=== PATIENT | female | born 1940 | race Caucasian/White ===

== ENCOUNTER 2016-12-21 10:11 | Inpatient (IN) | payer MEDICARE, BC ==
[2016-12-21] MEDS ORDERED: MORPHINE SULFATE 4 MG/ML SYRINGE IV STA (10:29)
[2016-12-21] MEDS ORDERED: SODIUM CHLORIDE 0.9% 1,000 ML IV ONE (10:29)
[2016-12-21] MEDS ORDERED: ONDANSETRON 4 MG/2 ML VIAL IVP STA (10:29)
[2016-12-21] MEDS ORDERED: SODIUM CHLORIDE 0.9% 500 ML IV ONE ×2 (10:29→12:32)
[2016-12-21] MEDS ORDERED: IPRATROPIUM-ALBUTEROL 3 ML NEB INHALATION STA (10:40)
[2016-12-21] MEDS ORDERED: methylPREDNISolone SOD SUCCI 125 MG/2 ML VIAL IV STA (10:40)
--- NOTE | 2016-12-21 10:43 | ED ---
Fall HPI - General Chief Complaint: Fall Stated Complaint: Back Pain/Hypothermia Time Seen by Provider: 12/21/16 10:12 Source: patient, EMS Mode of arrival: EMS - History of Present Illness Initial Comments: Fell last night, Procardia Procardia fall with her hands had a hard time getting up and finally crawl to the couch, she fell that her legs were weak, denies any head injury or loss of consciousness complaining about the back pain it's lower thoracic back pain she has a history of thoracic back pain, denies any bowel or bladder dysfunction. Denies any headaches no neck stiffness no chest pain has shortness of breath she said has a history of COPD coughing up some phlegm as well, does have a chronic shortness of breath he does hurt her chest when she takes a deep breath bringing up some phlegm. Denies any symptoms of TIA or CVA - Related Data Home Medications Medication Instructions Recorded Confirmed Hydrochlorothiazide [Hydrodiuril] 25 mg PO DAILY 04/16/16 12/21/16 Ibuprofen [Motrin] 800 mg PO QID PRN 04/16/16 12/21/16 Benazepril [Lotensin] 10 mg PO DAILY 12/21/16 12/21/16 Budesonide/Formoterol Fumarate 2 puff INHALATION RT-BID 12/21/16 12/21/16 [Symbicort 160-4.5 Mcg Inhaler] Previous Rx's Medication Instructions Recorded Albuterol Nebulized [Ventolin 2.5 mg INHALATION RT-QID #120 nebu 04/18/16 Nebulized] Tiotropium Lyman [Spiriva] 1 cap INHALATION RT-DAILY #30 04/18/16 cap.w.dev Allergies Allergy/AdvReac Type Severity Reaction Status Date / Time No Known Allergies Allergy Verified 12/21/16 10:36 Review of Systems ROS Statement: Those systems with pertinent positive or pertinent negative responses have been documented in the HPI. ROS Other: All systems not noted in ROS Statement are negative. Past Medical History Past Medical History: COPD, Hypertension Additional Past Medical History / Comment(s): emphysema History of Any Multi-Drug Resistant Organisms: None Reported Past Surgical History: Hysterectomy Additional Past Surgical History / Comment(s): thinks had hernia repair with covering Past Anesthesia/Blood Transfusion Reactions: Postoperative Nausea & Vomiting ( PONV) Past Psychological History: No Psychological Hx Reported Smoking Status: Former smoker Past Alcohol Use History: None Reported Past Drug Use History: None Reported - Past Family History Father Family Medical History: COPD Additional Family Medical History / Comment(s): empysema Mother Family Medical History: AICD/Pacemaker, Myocardial Infarction ([place]) General Exam - General Exam Comments Initial Comments: General: The patient is awake and alert, in mild distress Skin: Skin is warm and dry and no rashes or lesions are noted. Eye: Pupils are equal, round and reactive to light, extra-ocular movements are intact; there is normal conjunctiva bilaterally. Ears, nose, mouth and throat: There are moist mucous membranes and no oral lesions. Neck: The neck is supple, there is no tenderness or JVD. No tenderness over the cervical spine Cardiovascular: There is a regular rate and rhythm. No murmur, rub or gallop is appreciated. Respiratory: To auscultation bilateral, exam consistent with the moderate to severe COPD Gastrointestinal: Soft, non-distended, non-tender abdomen without masses or organomegaly noted. There is no rebound or guarding present. Bowel sounds are unremarkable. Back: There is no tenderness to palpation in the midline. There is no obvious deformity. Musculoskeletal: She is tender over the mid thoracic lower thoracic region Neurological: CN II-XII intact, Cranial nerves III through XII are intact. There are no obvious motor or sensory deficits. Coordination appears grossly intact. Speech is normal. Psychiatric: Cooperative, appropriate mood & affect, normal judgment. Course Vital Signs 12/21/16 12/21/16 12/21/16 10:13 11:01 11:09 Temperature 97.1 F L Pulse Rate 71 77 84 Respiratory 14 Rate Blood Pressure 137/79 O2 Sat by Pulse 100 Oximetry 12/21/16 12:20 Temperature Pulse Rate 69 Respiratory 18 Rate Blood Pressure 125/58 O2 Sat by Pulse 95 Oximetry EKG is junctional rhythm ventricular rate is 68 QRS duration is 78 QT/QTc is 440 /4067, because of patient's shakiness there is a lot of artifacts there is no ST elevation or ST depression in this EKG Medical Decision Making - Lab Data Result diagrams: 12/21/16 10:50 12/21/16 10:50 Lab Results 12/21/16 12/21/16 12/21/16 Range/Units 10:50 10:50 10:50 WBC 8.5 (3.8-10.6) k/uL RBC 4.46 (3.80-5.40) m/uL Hgb 14.2 (11.4-16.0) gm/dL Hct 42.2 (34.0-46.0) % MCV 94.8 (80.0-100.0) fL MCH 32.0 (25.0-35.0) pg MCHC 33.7 (31.0-37.0) g/dL RDW 13.8 (11.5-15.5) % Plt Count 284 (150-450) k/uL Neutrophils % 87 % Lymphocytes % 5 % Monocytes % 6 % Eosinophils % 1 % Basophils % 0 % Neutrophils # 7.4 (1.3-7.7) k/uL Lymphocytes # 0.4 L (1.0-4.8) k/uL Monocytes # 0.5 (0-1.0) k/uL Eosinophils # 0.1 (0-0.7) k/uL Basophils # 0.0 (0-0.2) k/uL PT 10.1 (9.0-12.0) sec INR 1.0 (<1.1) D-Dimer 2.92 H (<0.60) mg/L FEU VBG pH (7.31-7.41) VBG pCO2 (37-51) mmHg VBG HCO3 (24-28) mmol/L Sodium 124 L (137-145) mmol/L Potassium 3.5 (3.5-5.1) mmol/L Chloride 84 L (98-107) mmol/L Carbon Dioxide 26 (22-30) mmol/L Anion Gap 14 mmol/L BUN 13 (7-17) mg/dL Creatinine 0.62 (0.52-1.04) mg/dL Est GFR (MDRD) Af Amer >60 (>60 ml/min/1.73 sqM) Est GFR (MDRD) Non-Af >60 (>60 ml/min/1.73 sqM) Glucose 107 H (74-99) mg/dL Calcium 9.5 (8.4-10.2) mg/dL Total Bilirubin 1.1 (0.2-1.3) mg/dL AST 35 (14-36) U/L ALT 33 (9-52) U/L Alkaline Phosphatase 82 (38-126) U/L CK-MB (CK-2) (0.0-2.4) ng/mL Troponin I (0.000-0.034) ng/mL Total Protein 7.6 (6.3-8.2) g/dL Albumin 4.7 (3.5-5.0) g/dL 12/21/16 12/21/16 Range/Units 10:50 11:09 WBC (3.8-10.6) k/uL RBC (3.80-5.40) m/uL Hgb (11.4-16.0) gm/dL Hct (34.0-46.0) % MCV (80.0-100.0) fL MCH (25.0-35.0) pg MCHC (31.0-37.0) g/dL RDW (11.5-15.5) % Plt Count (150-450) k/uL Neutrophils % % Lymphocytes % % Monocytes % % Eosinophils % % Basophils % % Neutrophils # (1.3-7.7) k/uL Lymphocytes # (1.0-4.8) k/uL Monocytes # (0-1.0) k/uL Eosinophils # (0-0.7) k/uL Basophils # (0-0.2) k/uL PT (9.0-12.0) sec INR (<1.1) D-Dimer (<0.60) mg/L FEU VBG pH 7.46 H (7.31-7.41) VBG pCO2 38 (37-51) mmHg VBG HCO3 27 (24-28) mmol/L Sodium (137-145) mmol/L Potassium (3.5-5.1) mmol/L Chloride (98-107) mmol/L Carbon Dioxide (22-30) mmol/L Anion Gap mmol/L BUN (7-17) mg/dL Creatinine (0.52-1.04) mg/dL Est GFR (MDRD) Af Amer (>60 ml/min/1.73 sqM) Est GFR (MDRD) Non-Af (>60 ml/min/1.73 sqM) Glucose (74-99) mg/dL Calcium (8.4-10.2) mg/dL Total Bilirubin (0.2-1.3) mg/dL AST (14-36) U/L ALT (9-52) U/L Alkaline Phosphatase (38-126) U/L CK-MB (CK-2) 1.3 (0.0-2.4) ng/mL Troponin I <0.012 (0.000-0.034) ng/mL Total Protein (6.3-8.2) g/dL Albumin (3.5-5.0) g/dL Disposition Clinical Impression: Fall, COPD (chronic obstructive pulmonary disease), Generalized weakness, Compression fracture Disposition: ADMITTED IP TO THIS HOSP Condition: Good Referrals: Thom Guzman MD [Primary Care Provider] - 1-2 days
[2016-12-21 11:11] LABS: Basophils % (A) 0 %; CH 32.9; CHCM 34.8; Eosinophils # (A) 0.1 k/uL (0-0.7); Eosinophils % (A) 1 %; HCT 42.2 % (34.0-46.0); HDW 2.28; HGB 14.2 gm/dL (11.4-16.0); Luc # (Auto) 0.09; Luc % (Auto) 1; Lymphocytes # (A) 0.4 k/uL (1.0-4.8); Lymphocytes % (A) 5 %; MCHC 33.7 g/dL (31.0-37.0); MCV 94.8 fL (80.0-100.0); Mean Platelet Volume 6.2; Monocytes # (A) 0.5 k/uL (0-1.0); Monocytes % (A) 6 %; Neutrophils # (A) 7.4 k/uL (1.3-7.7); Neutrophils % (A) 87 %; RBC 4.46 m/uL (3.80-5.40); RDW 13.8 % (11.5-15.5); WBC 8.5 k/uL (3.8-10.6); WBC (Perox) 8.46
[2016-12-21 11:20] LABS: ALT 33 U/L (9-52); AST 35 U/L (14-36); Alkaline Phosphatase 82 U/L (38-126); Anion Gap 14 mmol/L; Blood Urea Nitrogen 13 mg/dL (7-17); Calcium 9.5 mg/dL (8.4-10.2); Carbon Dioxide 26 mmol/L (22-30); Chloride 84 mmol/L (98-107); Glucose 107 mg/dL (74-99); Non-African American GFR(MDRD) >60 (>60 ml/min/1.73 sqM); Sodium 124 mmol/L (137-145); Total Bilirubin 1.1 mg/dL (0.2-1.3); Total Protein 7.6 g/dL (6.3-8.2)
[2016-12-21 11:23] LABS: Potassium 3.5 mmol/L (3.5-5.1)
[2016-12-21 11:27] LABS: Prothrombin Time 10.1 sec (9.0-12.0)
[2016-12-21 11:38] LABS: VBG PH 7.46 (7.31-7.41)
--- NOTE | 2016-12-21 11:54 | XR ---
EXAMINATION TYPE: XR chest 2V DATE OF EXAM: 12/21/2016 11:49 AM COMPARISON: 04/16/2016 TECHNIQUE: PA and lateral views submitted. HISTORY: Pain FINDINGS: The lungs are clear and there is no pneumothorax, pleural effusion, or focal pneumonia. Linear dougherty ges involving the midlung suggestive of scar or atelectasis. Hyperinflation suggests COPD. Calcificat ion soft tissue the neck suggestive of carotid artery calcification. Degenerative change of the spine with severe compression deformity which is stable the midthoracic sp ine. IMPRESSION: 1. No acute process. 2. Stable severe compression deformity midthoracic spine 3. Correlate for COPD. 4. Progressive calcification soft tissue left neck correlate for carotid artery atherosclerotic disea se.
--- NOTE | 2016-12-21 11:59 | CT ---
EXAMINATION TYPE: CT brain wo con DATE OF EXAM: 12/21/2016 11:47 AM HISTORY: Patient fell today. Patient complains of mid back pain. Patient denies head trauma and hea d complaints. Headache per order. CT DLP: 799.1 mGycm. Automated Exposure Control for Dose Reduction was Utilized. TECHNIQUE: CT scan of the head is performed without contrast. COMPARISON: None. FINDINGS: There is no acute intracranial hemorrhage or midline shift identified. There is diffuse v entricular and sulcal prominence consistent with diffuse age-related cerebral atrophy. There is low- attenuation in the periventricular white matter consistent with chronic small vessel ischemic change. The globes are intact and the visualized sinuses are clear. The calvarium is intact. IMPRESSION: No acute intracranial hemorrhage or midline shift. There is mild to moderate diffuse ag e-related cerebral atrophy and moderate to severe chronic small vessel ischemic change noted.
--- NOTE | 2016-12-21 12:04 | CT ---
EXAMINATION TYPE: CT thoracic spine wo con DATE OF EXAM: 12/21/2016 11:46 AM COMPARISON: NONE HISTORY: Patient fell today. Patient complains of mid back pain. CT DLP: 444.9 mGycm Automated exposure control for dose reduction was used. FINDINGS: Osseous structures are demineralized. There is exaggerated thoracic kyphosis is seen. There is modera te to severe compression type fracture at T8 level presumed chronic as there is no suspicious linear lucencies seen. There is mild compression type fracture involving superior T11 endplate also presumed chronic as there is some sclerosis identified. Mild anterior wedging and height loss superior endpla te T12 level is seen presumed chronic. No suspicious linear lucency is seen to suggest acute fracture . There is posterior retropulsion of inferior posterior T8 vertebra into spinal canal on sagittal image 23. There is mild posterior retropulsion of the superior half of T11 vertebra on sagittal image 23 i nto the anterior spinal canal. There is mild multilevel anterior spurring. There is S-shaped scoliosi s most pronounced in the visualized upper lumbar spine on coronal images. There is underlying moderate to severe emphysematous change. There is partial visualization of suspec marivel bulla in the lingula or left mid lung with some mild bronchiectasis and peribronchial scarring in ferior to this partially imaged. There is mild to moderate calcified atherotic change of the visualiz ed aorta. There is coronary artery calcification seen which is noted marker for coronary artery disea se. No significant degenerative findings are identified on axial images. IMPRESSION: NO ACUTE FRACTURE OR DISLOCATION IS SEEN. THERE IS DEMINERALIZATION WITH SCOLIOSIS AND EXAGGERATED TH ORACIC KYPHOSIS. THERE ARE SEVERAL CHRONIC COMPRESSION TYPE FRACTURE DEFORMITIES MOST PROMINENT AT T8 LEVEL. OTHER FINDINGS ARE NOTED DETAILED ABOVE.
[2016-12-21] MEDS ORDERED: RX INFO: IV CONTRAST WAS GIVEN 1 EACH MISC MISCELLANE PRN (12:31)
[2016-12-21 12:34] LABS: Creatine Kinase MB 1.3 ng/mL (0.0-2.4); Troponin I <0.012 ng/mL (0.000-0.034)
--- NOTE | 2016-12-21 13:09 | CT ---
EXAMINATION TYPE: CT angio chest DATE OF EXAM: 12/21/2016 1:03 PM COMPARISON: Same-day thoracic spine x-ray. HISTORY: Patient complains of fall today with mid back pain. Patient has history of COPD. Rule out pu lmonary embolism per order CT DLP: 230.4 mGycm. Automated Exposure Control for Dose Reduction was Utilized. CONTRAST: CTA scan of the thorax is performed with IV Contrast, patient injected with 100 mL of Omnipaque 350, pulmonary embolism protocol. MIP Images are created on CT scanner and reviewed. FINDINGS: LUNGS: There is background of moderate emphysematous change. There is thin-walled cyst or bulla in th e inferior left upper lobe measuring 3.3 x 3.3 cm on axial image 69 there is scarring and mild bronch iectatic change along inferior aspect of this abutting the minor fissure with some extension into the superior lingula. Dependent atelectatic change is seen in both bases. There is no pleural effusion o r pneumothorax present bilaterally. No concerning parenchymal nodule or mass is seen. MEDIASTINUM: There is satisfactory enhancement of the pulmonary artery and its branches, there is no CT evidence for pulmonary embolism. There are no greater than 1 cm hilar or mediastinal lymph nodes. No cardiomegaly or pericardial effusion is seen. Coronary artery calcification is noted. There is moderate mixed plaque in visualized aorta extending into left subclavian branch vessel. OTHER: Osseous structures are demineralized. Moderate to advanced compression type fracture at T8 lev el is redemonstrated. Mild height loss or compression fractures T11 and T12 level are redemonstrated. IMPRESSION: 1. No CT evidence for pulmonary embolism. 2. Moderate emphysematous change without suspicious acute pulmonary process.
[2016-12-21] MEDS ORDERED: IPRATROPIUM-ALBUTEROL 3 ML NEB INHALATION PRN (13:53)
[2016-12-21 14:13] LABS: Appearance,Urine Clear (Clear); Bilirubin,Urine Negative (Negative); Glucose,Urine (UA) Negative (Negative); Ketones,Urine Negative (Negative); Leukocyte Esterase,Urine Negative (Negative); Nitrite,Urine Negative (Negative); Protein,Urine Negative (Negative); Specific Gravity,Urine 1.025 (1.001-1.035); UA Billing (MACRO vs. MICRO) CHEM; Urobilinogen,Urine <2.0 mg/dL (<2.0)
[2016-12-21] MEDS ORDERED: FUROSEMIDE 10 MG/ML 2 ML VIAL IV ONE (15:00)
[2016-12-21] MEDS: IBUPROFEN 800 MG TAB PO PRN ×2 (15:57→21:44)
[2016-12-21] MEDS: ALBUTEROL NEBULIZED 2.5 MG/3 ML INHALATION SCH ×2 (16:00→20:18)
[2016-12-21 17:07] LABS: Glucose,Whole Blood 208 mg/dL (75-99)
[2016-12-21] MEDS: methylPREDNISolone SOD SUCCI 125 MG/2 ML VIAL IV SCH ×2 (17:50→23:52)
[2016-12-21] MEDS: INSULIN LISPRO (humaLOG) 300 UNIT/3 ML VIAL SQ SCH ×2 (17:50→21:33)
[2016-12-21] MEDS ORDERED: BUDESONIDE 0.5 MG/2 ML NEBU INHALATION SCH (20:00)
[2016-12-21] MEDS: SYMBICORT 160-4.5 MCG INHALER INHALATION SCH (20:26)
[2016-12-21 20:58] LABS: Glucose,Whole Blood 119 mg/dL (75-99)
[2016-12-22] MEDS: IBUPROFEN 800 MG TAB PO PRN ×3 (03:40→20:55)
[2016-12-22] MEDS: methylPREDNISolone SOD SUCCI 125 MG/2 ML VIAL IV SCH ×3 (06:32→17:04)
[2016-12-22] MEDS: HYDROCHLOROTHIAZIDE 25 MG TAB PO SCH (07:37)
[2016-12-22] MEDS: LISINOPRIL 10 MG TAB PO SCH (07:37)
[2016-12-22] MEDS: INSULIN LISPRO (humaLOG) 300 UNIT/3 ML VIAL SQ SCH ×4 (07:38→20:58)
[2016-12-22 07:43] LABS: Glucose,Whole Blood 159 mg/dL (75-99)
[2016-12-22] MEDS: SYMBICORT 160-4.5 MCG INHALER INHALATION SCH ×2 (08:24→20:27)
[2016-12-22] MEDS: ALBUTEROL NEBULIZED 2.5 MG/3 ML INHALATION SCH ×4 (08:24→20:27)
[2016-12-22] MEDS: TIOTROPIUM 18 MCG/PUFF INHALER INHALATION SCH (08:24)
[2016-12-22 12:16] LABS: Glucose,Whole Blood 154 mg/dL (75-99)
[2016-12-22 17:26] LABS: Glucose,Whole Blood 182 mg/dL (75-99)
[2016-12-22 20:55] LABS: Glucose,Whole Blood 137 mg/dL (75-99)
[2016-12-23] MEDS: methylPREDNISolone SOD SUCCI 125 MG/2 ML VIAL IV SCH ×3 (00:16→12:01)
[2016-12-23 07:42] LABS: Glucose,Whole Blood 150 mg/dL (75-99)
[2016-12-23] MEDS: HYDROCHLOROTHIAZIDE 25 MG TAB PO SCH (08:03)
[2016-12-23] MEDS: LISINOPRIL 10 MG TAB PO SCH (08:03)
[2016-12-23] MEDS: INSULIN LISPRO (humaLOG) 300 UNIT/3 ML VIAL SQ SCH ×4 (08:04→21:19)
[2016-12-23] MEDS: ALBUTEROL NEBULIZED 2.5 MG/3 ML INHALATION SCH ×4 (08:32→19:38)
[2016-12-23] MEDS: SYMBICORT 160-4.5 MCG INHALER INHALATION SCH ×2 (08:33→19:38)
[2016-12-23] MEDS: TIOTROPIUM 18 MCG/PUFF INHALER INHALATION SCH (09:33)
[2016-12-23 12:03] LABS: Glucose,Whole Blood 124 mg/dL (75-99)
[2016-12-23] MEDS: IBUPROFEN 800 MG TAB PO PRN (13:16)
[2016-12-23 15:42] VITALS: RESP 18
[2016-12-23] MEDS ORDERED: ACETAMINOPHEN TAB 325 MG TAB PO PRN (16:12)
[2016-12-23 17:25] LABS: Glucose,Whole Blood 119 mg/dL (75-99)
--- NOTE | 2016-12-23 18:28 | HP ---
CHIEF COMPLAINT: Fall with fracture of the T8. HISTORY OF PRESENT ILLNESS: This is another admission for this frail 76-year-old white female. She apparently fell at home on was found in the back. She sustained quite a bit of pain in the dorsal spine area and came to emergency room, where she was found to have a compression fracture of T8. She also was in respiratory distress. She has severe COPD and is making a serious effort to quit smoking. She reports that she has not smoked since July 2016. She had no neurologic deficits. REVIEW OF SYSTEMS: She has had no syncope, headaches, focal neurologic deficits, problems with lower extremities or loss of sphincter control. She has had no cough, hemoptysis, chest pain, abdominal pain, vomiting, diarrhea, melena, jaundice, hematuria, frequency, urgency, arthralgias, etc. Past medical history, family history, personal and social histories reveal that she is not allergic to anything. She is on: 1. Symbicort 160/4.5 2 puffs twice a day. 2. Lotensin 10 mg once a day. 3. Updrafts with albuterol and Atrovent q.i.d. and p.r.n. 4. Atrovent q.i.d. and p.r.n. 5. Spiriva once a day. 6. Ibuprofen 800 mg q.i.d. p.r.n. 7. Hydrochlorothiazide 25 mg once a day. She has had 1 and 1 delivery. Surgically, she has had a breast biopsy. PHYSICAL EXAM: VITAL SIGNS: Blood pressure 166/84, pulse 72, respirations 16, temperature 98.3. In general, she appeared to be flushed and in quite a bit of discomfort. Head, ears, eyes, nose, mouth and throat were otherwise normal. Gaze is conjugate. Ears are clear. The neck is supple. Neck veins not distended. The chest demonstrated poor breath sounds and there were no rales or rhonchi. Cardiac demonstrated sinus tachycardia. There were no murmurs or extra sounds. The abdomen was soft and there were no masses. Extremities were normal. Neurologically, she is intact. She was a little bit tender over the mid dorsal spine. IMPRESSION: 1. Compression fracture of T8. 2. Chronic obstructive pulmonary disease, severe. 3. Scoliosis. 4. Hypertension. PLAN: 1. Bed rest. 2. Analgesics. 3. Updrafts. 4. Physical therapy.
--- NOTE | 2016-12-23 18:46 | PN ---
CHIEF COMPLAINT: Syncope and fracture of T8 with COPD. HISTORY OF PRESENT ILLNESS: This lady is still in a lot of pain and can hardly move. She has had no fever, chills, purulent sputum production, etc. PHYSICAL EXAM: Breath sounds are poor but there are no rales or rhonchi. Cardiac is normal. The abdomen is soft and nontender. IMPRESSION: 1. Fracture of ( ). 2. Chronic obstructive pulmonary disease. PLAN: 1. Updrafts. 2. Continue on conservative management until she is able to ambulate. She may have to go for rehab.
[2016-12-23 21:03] LABS: Glucose,Whole Blood 139 mg/dL (75-99)
[2016-12-23] MEDS: DOCUSATE 100 MG CAP PO PRN (21:19)
[2016-12-24] MEDS ORDERED: methylPREDNISolone SOD SUCCI 40 MG/ML 1 ML VIAL IV SCH
[2016-12-24 07:35] LABS: Glucose,Whole Blood 119 mg/dL (75-99)
[2016-12-24] MEDS: INSULIN LISPRO (humaLOG) 300 UNIT/3 ML VIAL SQ SCH ×2 (07:39→12:04)
[2016-12-24 07:43] VITALS: BP 158/77; TEMP 97
[2016-12-24] MEDS: ALBUTEROL NEBULIZED 2.5 MG/3 ML INHALATION SCH (07:57)
[2016-12-24] MEDS: SYMBICORT 160-4.5 MCG INHALER INHALATION SCH (07:57)
[2016-12-24 08:16] VITALS: PULSE 83
[2016-12-24] MEDS: TIOTROPIUM 18 MCG/PUFF INHALER INHALATION SCH (08:18)
[2016-12-24] MEDS: HYDROCHLOROTHIAZIDE 25 MG TAB PO SCH (08:42)
[2016-12-24] MEDS: LISINOPRIL 10 MG TAB PO SCH (08:42)
[2016-12-24] MEDS: DOCUSATE 100 MG CAP PO PRN (10:40)
[2016-12-24] MEDS: IBUPROFEN 800 MG TAB PO PRN (10:50)
--- NOTE | 2016-12-24 11:07 | P.DS ---
Providers Date of admission: 12/21/16 13:53 Expected date of discharge: 12/24/16 Attending physician: Thom Guzman Primary care physician: Thom Guzman [facility] Course: 76-year-old female who presented via the EMS system on the december after patient stated that she had fallen was having trouble getting up felt that her legs were weak. Denied head injury denied loss of consciousness. Patient did report having lower back pain lower thoracic pain. Patient does give a history of chronic back pain. Patient also states that she has a history of COPD and coughing up phlegm and chronically feels short of breath. Patient stated that she took deep breaths she was coughing up phlegm. Patient is a former smoker. Quit in July 2016 prior to that greater than a 40 year history. CAT scan of the brain without contrast in the emergency room showed no acute intracranial hemorrhage. There is mild to moderate diffuse age-related cerebral atrophy with moderate to severe chronic small vessel ischemic changes noted in the emergency room the patient did undergo a CAT scan of the thoracic spine without contrast in summary showed no acute fracture or dislocation. There were noted to be several chronic compression type fracture deformities most prominent at T8 level patient also had a CAT scan of the chest that showed no evidence of a pulmonary emboli did show moderate emphysematous changes without any suspicious acute pulmonary process. Patient was seen by physical therapy occupational therapy and the family service caseworker the recommending the patient to be discharged home with a rolling walker with no inpatient rehab Patient was felt to be stable and appropriate proceed with a discharge to home The above dictated assessment and findings were discussed with Dr. Guzman Impression and the plan of care have been dictated as directed. Samia Nayak nurse practitioner acting as a scribe for Dr. Guzman Patient Condition at Discharge: Good Plan - Discharge Summary New Discharge Prescriptions: Ipratropium-Albuterol Nebulize [Duoneb 0.5 mg-3 mg/3 ml Soln] 3 ml INHALATION RT -Q4H PRN #120 ampul.neb PRN Reason: Shortness Of Breath Or Wheezing Discharge Medication List Hydrochlorothiazide [Hydrodiuril] 25 mg PO DAILY 04/16/16 [History] Ibuprofen [Motrin] 800 mg PO QID PRN 04/16/16 [History] Albuterol Nebulized [Ventolin Nebulized] 2.5 mg INHALATION RT-QID #120 nebu 11/29 [Rx] Tiotropium Sewell [Spiriva] 1 cap INHALATION RT-DAILY #30 cap.w.dev 04/18/16 [ Rx] Benazepril [Lotensin] 10 mg PO DAILY 12/21/16 [History] Budesonide/Formoterol Fumarate [Symbicort 160-4.5 Mcg Inhaler] 2 puff INHALATION RT-BID 12/21/16 [History] Ipratropium-Albuterol Nebulize [Duoneb 0.5 mg-3 mg/3 ml Soln] 3 ml INHALATION RT -Q4H PRN #120 ampul.neb 12/24/16 [Rx] Follow up Appointment(s)/Referral(s): Thom Guzman MD [Primary Care Provider] - 1-2 days Discharge Disposition: HOME WITH HOME HEALTH SERVICES
[2016-12-24 11:38] LABS: Glucose,Whole Blood 114 mg/dL (75-99)
--- NOTE | 2016-12-24 21:42 | PN ---
DATE OF SERVICE: 12/23/2016 CHIEF COMPLAINT: Fracture of T12 and chronic obstructive pulmonary disease. HISTORY OF PRESENT ILLNESS: This lady is feeling fairly good and she is able to sit up and move around comfortably. It was felt that she probably could go home today. This will be arranged by the nurse practitioner and we will see her in a day or two.
== END 2016-12-24 15:30 | disposition home health service (06) | DRG 552 ==
LOC: EC 10:11 → 4MS4W 13:53
PROVIDERS: ADMIT Family Medicine; ATTEND Family Medicine
DX: S22.069A Unspecified fracture of T7-T8 vertebra, initial encounter for closed fracture (principal); S22.089A Unspecified fracture of T11-T12 vertebra, initial encounter for closed fracture; J44.9 Chronic obstructive pulmonary disease, unspecified; M41.9 Scoliosis, unspecified; I10 Essential (primary) hypertension; G89.29 Other chronic pain; Z87.891 Personal history of nicotine dependence; Z79.51 Long term (current) use of inhaled steroids; Z79.899 Other long term (current) drug therapy; W19.XXXA Unspecified fall, initial encounter; Y92.009 Unspecified place in unspecified non-institutional (private) residence as the place of occurrence of the external cause
CPT/HCPCS: 36415; 70450; 71020; 71275; 72128; 80053; 81003; 82553; 82803; 84484; 85025; 85379; 85610; 93005; 94640; 96361; 96374; 96375; 99285

== ENCOUNTER 2017-08-11 06:13 | Emergency (ER) | payer MEDICARE, BC ==
[2017-08-11] MEDS ORDERED: HYDROmorphone 2 MG/ML 1 ML SYRINGE IVP STA ×2 (06:36→08:31)
[2017-08-11] MEDS ORDERED: IPRATROPIUM-ALBUTEROL 3 ML NEB INHALATION STA (06:37)
[2017-08-11] MEDS ORDERED: ONDANSETRON 4 MG/2 ML VIAL IVP STA (06:37)
[2017-08-11 07:05] LABS: Basophils % (A) 0 %; CH 31.2; CHCM 33.1; Eosinophils % (A) 0 %; HCT 39.8 % (34.0-46.0); HDW 2.25; HGB 12.9 gm/dL (11.4-16.0); Luc # (Auto) 0.04; Luc % (Auto) 0; Lymphocytes # (A) 0.5 k/uL (1.0-4.8); Lymphocytes % (A) 5 %; MCH 30.7 pg (25.0-35.0); MCHC 32.4 g/dL (31.0-37.0); MCV 94.8 fL (80.0-100.0); Mean Platelet Volume 6.7; Monocytes # (A) 0.6 k/uL (0-1.0); Monocytes % (A) 6 %; Neutrophils # (A) 7.8 k/uL (1.3-7.7); Neutrophils % (A) 87 %; RDW 14.6 % (11.5-15.5); WBC 8.9 k/uL (3.8-10.6); WBC (Perox) 9.78
[2017-08-11 07:29] LABS: ALT 31 U/L (9-52); AST 30 U/L (14-36); Alkaline Phosphatase 72 U/L (38-126); Anion Gap 8 mmol/L; Blood Urea Nitrogen 12 mg/dL (7-17); Calcium 8.9 mg/dL (8.4-10.2); Carbon Dioxide 27 mmol/L (22-30); Chloride 92 mmol/L (98-107); Glucose 124 mg/dL (74-99); Non-African American GFR(MDRD) >60 (>60 ml/min/1.73 sqM); Sodium 127 mmol/L (137-145); Total Bilirubin 0.4 mg/dL (0.2-1.3)
[2017-08-11 07:33] LABS: Creatine Kinase 368 U/L (30-135)
--- NOTE | 2017-08-11 07:36 | ED ---
Upper Extremity HPI - General Source: EMS Mode of arrival: EMS Limitations: physical limitation <Blake Rodriguez - Last Filed: 08/11/17 08:40> <To Augustin - Last Filed: 08/11/17 09:24> - General Chief Complaint: Extremity Injury, Upper Stated Complaint: Fall/Wrist Injury Time Seen by Provider: 08/11/17 06:26 - History of Present Illness Initial Comments: 77 years old female is going from the living room to the bathroom, she fell she tried to break the fall with her left hand, she injured her left wrist denies any head injury denies any neck injury because of the fall she does complain about shortness of breath she is a smoker with COPD but she feels that shortness of breath as well more pronounced no abdominal pain no frequency urgency, no injury to her lower extremities, no head injury, no loss of consciousness (Blake Rodriguez) - Related Data Home Medications Medication Instructions Recorded Confirmed Ibuprofen [Motrin] 800 mg PO QID PRN 04/16/16 08/11/17 Benazepril [Lotensin] 10 mg PO DAILY 12/21/16 08/11/17 Ergocalciferol [Vitamin D2] 50,000 unit PO Q30D 08/11/17 08/11/17 Previous Rx's Medication Instructions Recorded Albuterol Nebulized [Ventolin 2.5 mg INHALATION RT-QID #120 nebu 04/18/16 Nebulized] Tiotropium [place] [Spiriva] 1 cap INHALATION RT-DAILY #30 04/18/16 cap.w.dev Ipratropium-Albuterol Nebulize 3 ml INHALATION RT-Q4H PRN #120 12/24/16 [Duoneb 0.5 mg-3 mg/3 ml Soln] ampul.neb HYDROmorphone [Dilaudid] 1 mg PO Q4HR PRN #15 tab 08/11/17 Allergies Allergy/AdvReac Type Severity Reaction Status Date / Time No Known Allergies Allergy Verified 08/11/17 08:37 Review of Systems ROS Other: All systems not noted in ROS Statement are negative. <Blake Rodriguez - Last Filed: 08/11/17 08:40> ROS Other: All systems not noted in ROS Statement are negative. <To Augustin - Last Filed: 08/11/17 09:24> ROS Statement: Those systems with pertinent positive or pertinent negative responses have been documented in the HPI. Past Medical History Past Medical History: COPD, Hypertension, Osteoarthritis (OA), Vascular Disorder Additional Past Medical History / Comment(s): emphysema, DDD, back pain, arthritis back and hands, PVD bilateral legs, numbness/tingling bilateral feet with R foot worse History of Any Multi-Drug Resistant Organisms: None Reported Past Surgical History: Hernia Repair, Hysterectomy Additional Past Surgical History / Comment(s): R inguinal hernia repair, colonoscopy with benign polypectomy. Past Anesthesia/Blood Transfusion Reactions: Postoperative Nausea & Vomiting ( PONV) Past Psychological History: Anxiety Smoking Status: Current every day smoker Past Alcohol Use History: Daily Past Drug Use History: None Reported - Past Family History Father Family Medical History: COPD Additional Family Medical History / Comment(s): empysema Mother Family Medical History: AICD/Pacemaker, Myocardial Infarction ([place]) Additional Family Medical History / Comment(s): Mother had a pacemaker. <Blake Rodriguez - Last Filed: 08/11/17 08:40> General Exam Limitations: physical limitation <Blake Rodriguez - Last Filed: 08/11/17 08:40> <To Augustin - Last Filed: 08/11/17 09:24> - General Exam Comments Initial Comments: General: The patient is awake and alert, in great distress and blood pressures elevated to 8/99 but she is in a lot of pain at this point Skin: Skin is warm and dry and no rashes or lesions are noted. Eye: Pupils are equal, round and reactive to light, extra-ocular movements are intact; there is normal conjunctiva bilaterally. Ears, nose, mouth and throat: There are moist mucous membranes and no oral lesions. Neck: The neck is supple, there is no tenderness o Cardiovascular: There is a regular rate and rhythm. No murmur, rub or gallop is appreciated. Respiratory: To auscultation bilateral, exam is consistent with a moderate to severe COPD Gastrointestinal: Soft, non-distended, non-tender abdomen without masses or organomegaly noted. There is no rebound or guarding present. Bowel sounds are unremarkable. Back: There is no tenderness to palpation in the midline. There is no obvious deformity. Musculoskeletal: He is range of motion at the left breast she is able to move her fingers, capillary refill is within normal range, no motor or sensory deficits noticed Neurological: CN II-XII intact, Cranial nerves III through XII are intact. There are no obvious motor or sensory deficits. Coordination appears grossly intact. Speech is normal. Psychiatric: Cooperative, appropriate mood & affect, normal judgment. (Blake Rodriguez) Course <lBake Rodriguez - Last Filed: 08/11/17 08:40> <To Augustin - Last Filed: 08/11/17 09:24> Vital Signs 08/11/17 08/11/17 08/11/17 06:15 07:10 07:23 Temperature 97.1 F L Pulse Rate 75 76 76 Respiratory 18 Rate Blood Pressure 208/99 O2 Sat by Pulse 95 Oximetry 08/11/17 08/11/17 08:00 09:00 Temperature Pulse Rate 91 99 Respiratory 18 20 Rate Blood Pressure 112/59 112/59 O2 Sat by Pulse 91 L 95 Oximetry Him EKG is normal sinus rhythm ventricular rate is 88 [place] interval is 192 QRS duration is 76 QT/QTc is 48/493 review cc EKG does not reveal any ST elevation or ST depression there are some artifacts in the limb leads (Blake Rodriguez) - Reevaluation(s) Reevaluation #1: 08/11/17 07:54 She was quite short winded on arrival, her d-dimer is quite elevated we'll go ahead and do an CT angiogram to rule out any PE 08/11/17 08:09 X-ray was reviewed, she does have a fracture of the distal radius and ulna, get a page Dr. [facility]opedic surgeon today to seek his advice about the wrist fracture 08/11/17 08:44 Dr. Kvng Allen will keep an eye and the CT angiogram and agreed to follow-up on the CT edges report (Blake Rodriguez) Procedures - Orthopedic Splinting/Casting Injury #1 Upper Extremity Injury Location: wrist (Splint was applied for the left wrist fracture) <Blake Rodriguez - Last Filed: 08/11/17 08:40> Medical Decision Making - Lab Data Result diagrams: 08/11/17 06:51 08/11/17 06:51 <Blake Rodriguez - Last Filed: 08/11/17 08:40> - Lab Data Result diagrams: 08/11/17 06:51 08/11/17 06:51 - Radiology Data Radiology results: report reviewed (CTA chest negative), image reviewed <To Augustin - Last Filed: 08/11/17 09:24> - Medical Decision Making 77 female to ER for evaluation. Patient is presenting for evaluation today status post fall. Patient had CT secondary to subsequent elevated d-dimer. CT is negative for PE. Patient does have risk factor which is currently splinted and will follow up with orthopedics (To Augustin) - Lab Data Lab Results 08/11/17 08/11/17 08/11/17 Range/Units 06:51 06:51 06:51 WBC 8.9 (3.8-10.6) k/uL RBC 4.20 (3.80-5.40) m/uL Hgb 12.9 (11.4-16.0) gm/dL Hct 39.8 (34.0-46.0) % MCV 94.8 (80.0-100.0) fL MCH 30.7 (25.0-35.0) pg MCHC 32.4 (31.0-37.0) g/dL RDW 14.6 (11.5-15.5) % Plt Count 303 (150-450) k/uL Neutrophils % 87 % Lymphocytes % 5 % Monocytes % 6 % Eosinophils % 0 % Basophils % 0 % Neutrophils # 7.8 H (1.3-7.7) k/uL Lymphocytes # 0.5 L (1.0-4.8) k/uL Monocytes # 0.6 (0-1.0) k/uL Eosinophils # 0.0 (0-0.7) k/uL Basophils # 0.0 (0-0.2) k/uL D-Dimer (<0.60) mg/L FEU Sodium 127 L (137-145) mmol/L Potassium 3.0 L* (3.5-5.1) mmol/L Chloride 92 L (98-107) mmol/L Carbon Dioxide 27 (22-30) mmol/L Anion Gap 8 mmol/L BUN 12 (7-17) mg/dL Creatinine 0.75 (0.52-1.04) mg/dL Est GFR (MDRD) Af Amer >60 (>60 ml/min/1.73 sqM) Est GFR (MDRD) Non-Af >60 (>60 ml/min/1.73 sqM) Glucose 124 H (74-99) mg/dL Calcium 8.9 (8.4-10.2) mg/dL Total Bilirubin 0.4 (0.2-1.3) mg/dL AST 30 (14-36) U/L ALT 31 (9-52) U/L Alkaline Phosphatase 72 (38-126) U/L Total Creatine Kinase 368 H (30-135) U/L CK-MB (CK-2) 4.0 H* (0.0-2.4) ng/mL CK-MB (CK-2) Rel Index 1.1 Troponin I <0.012 (0.000-0.034) ng/mL Total Protein 6.0 L (6.3-8.2) g/dL Albumin 3.6 (3.5-5.0) g/dL 08/11/17 Range/Units 06:51 WBC (3.8-10.6) k/uL RBC (3.80-5.40) m/uL Hgb (11.4-16.0) gm/dL Hct (34.0-46.0) % MCV (80.0-100.0) fL MCH (25.0-35.0) pg MCHC (31.0-37.0) g/dL RDW (11.5-15.5) % Plt Count (150-450) k/uL Neutrophils % % Lymphocytes % % Monocytes % % Eosinophils % % Basophils % % Neutrophils # (1.3-7.7) k/uL Lymphocytes # (1.0-4.8) k/uL Monocytes # (0-1.0) k/uL Eosinophils # (0-0.7) k/uL Basophils # (0-0.2) k/uL D-Dimer 5.37 H (<0.60) mg/L FEU Sodium (137-145) mmol/L Potassium (3.5-5.1) mmol/L Chloride (98-107) mmol/L Carbon Dioxide (22-30) mmol/L Anion Gap mmol/L BUN (7-17) mg/dL Creatinine (0.52-1.04) mg/dL Est GFR (MDRD) Af Amer (>60 ml/min/1.73 sqM) Est GFR (MDRD) Non-Af (>60 ml/min/1.73 sqM) Glucose (74-99) mg/dL Calcium (8.4-10.2) mg/dL Total Bilirubin (0.2-1.3) mg/dL AST (14-36) U/L ALT (9-52) U/L Alkaline Phosphatase (38-126) U/L Total Creatine Kinase (30-135) U/L CK-MB (CK-2) (0.0-2.4) ng/mL CK-MB (CK-2) Rel Index Troponin I (0.000-0.034) ng/mL Total Protein (6.3-8.2) g/dL Albumin (3.5-5.0) g/dL Disposition <Blake Rodriguez - Last Filed: 08/11/17 08:40> <To Augustin - Last Filed: 08/11/17 09:24> Clinical Impression: Hypertension, Wrist fracture, Hypokalemia, Elevated d-dimer Disposition: HOME SELF-CARE Condition: Good Instructions: Wrist Fracture in Adults (ED) Prescriptions: HYDROmorphone [Dilaudid] 1 mg PO Q4HR PRN #15 tab PRN Reason: Pain Referrals: Thom Guzman MD [Primary Care Provider] - 1-2 days Lanodn Greco MD [STAFF PHYSICIAN] - 1-2 days
[2017-08-11] MEDS ORDERED: RX INFO: IV CONTRAST WAS GIVEN 1 EACH MISC MISCELLANE PRN (07:37)
[2017-08-11 07:46] LABS: Troponin I <0.012 ng/mL (0.000-0.034)
[2017-08-11] MEDS ORDERED: POTASSIUM CHLORIDE ORAL LIQUID 40 MEQ/30 ML CUP PO ONE (08:06)
[2017-08-11] MEDS ORDERED: HYDROmorphone 0.5 MG/0.5 ML SYRINGE IVP STA (08:31)
--- NOTE | 2017-08-11 08:31 | XR ---
EXAMINATION TYPE: XR chest 2V DATE OF EXAM: 08/11/2017 COMPARISON: 12/21/2016 HISTORY: 77-year-old female with chest pain after fall, limited mobility TECHNIQUE: AP and lateral views FINDINGS: Heart is normal size. Aorta and pulmonary vasculature within normal limits. Diffuse interstitial prom inence is unchanged, possible chronic bronchitis/asthma. Suggestion of subtle vague nodular densities suggested in the right upper lobe and peripheral left upper lung. Strandy scar at the left mid to lo wer lung. No pleural effusion. Stable vertebral compression probably of T8. T9 shows slight interval height loss and there is new valadez perior endplate compression deformity of T11. IMPRESSION: 1. Possible summation artifacts. Unable to exclude vague pulmonary nodules in the upper lobes. CT can further evaluate. Otherwise, there are chronic changes without acute process seen. 2. Mild interval height loss of T9 vertebral body and new superior endplate compression deformity of T11 vertebral body. Chronic compression deformity of T8. Correlate for focal pain at T9 and T11 to as sess acuity.
--- NOTE | 2017-08-11 08:35 | XR ---
EXAMINATION TYPE: XR forearm 2 views LT, XR wrist complete 4 views LT DATE OF EXAM: 08/11/2017 COMPARISON: NONE HISTORY: 77-year-old female pain after fall, limited mobility, rule out fracture FINDINGS: Forearm: Muscular atrophy. Lateral view not provided. Unable to assess for elbow joint effusion. Diffuse osteo penia. No appreciable acute fracture of the proximal to mid radius or ulna. Wrist: However, there is a moderately impacted and dorsally angulated transverse metaphyseal fracture of the distal radius. Secondary positive ulnar variance. Additional dorsally angulated transverse metaphyse al fracture of the ulna. Secondary deformity and swelling of the wrist joint. Advanced degenerative c hanges at the base of the thumb with small loose bodies. There seems to be borderline to mild widening at the scapholunate interval on the navicular view. IMPRESSION: 1. Moderately impacted Colles' fracture. Secondary positive ulnar variance. 2. Mildly impacted and dorsally angulated distal ulnar metaphyseal fracture. 3. Borderline to mild widening of the scapholunate interval on the navicular view. Findings suggest a ge indeterminate injury of the scapholunate ligament. 4. Degenerative changes at the base of thumb.
[2017-08-11 09:02] VITALS: RESP 20
--- NOTE | 2017-08-11 09:15 | CT ---
EXAMINATION TYPE: CT angio chest DATE OF EXAM: 08/11/2017 COMPARISON: 12/21/2016 and radiograph same day HISTORY: 77-year-old female SOB, elevated d dimer TECHNIQUE: Contiguous axial scanning of the chest performed with IV Contrast, patient injected with 1 00 mL of Omnipaque 350. Coronal/sagittal MIP reconstructions performed. CT DLP: 437 mGycm Automated exposure control for dose reduction was used. FINDINGS: The heart is normal size without pericardial effusion. The left ventricular myocardium appears somewh at thickened. This seems to be lipomatous hypertrophy of the intra-atrial septum. Coronary vessel claudia cifications are present in remarkable for coronary artery disease. Aorta normal caliber with mild atherosclerotic calcifications and conventional arch vessel branching anatomy. A few nonenlarged mediastinal lymph nodes measure up to 8 mm in the precarinal region. No thoracic ly mphadenopathy by CT size criteria. Large caliber to the main right pulmonary artery at 2.8 cm could reflect underlying pulmonary hyperte nsion. There is satisfactory opacification of the pulmonary artery consistent without evidence for pu lmonary embolus. There is moderately advanced centrilobular emphysema and mild diffuse bronchial wall thickening sugge sting chronic bronchitis. Dependent atelectasis lower lungs. Irregular 6 mm nodular density right middle lobe near the major fissure, axial image 93 was previousl y not as defined. Redemonstrated 4 cm lingular pneumatocele increasing nodular soft tissue thickening along the inferio r margin measuring up to 3.2 x 2.2 cm versus 2.7 x 2.2 cm on 12/21/2016. Small hiatal hernia. Bones: Similar vertebral compression deformity of T8 with mild retropulsion into the spinal canal. Mild vertebral body height loss of T9 as compared to 12/21/2016 but without any paravertebral soft tiss ue abnormality. New superior endplate compression deformity of T11 with mild retropulsion into the ventral spinal can al as compared to 12/21/2016 but without any paravertebral soft tissue abnormality seen. Stable minimal superior endplate compression deformity of T12 compatible with remote injury. IMPRESSION: 1. COPD WITH MODERATE TO ADVANCED EMPHYSEMA AND POSSIBLE PULMONARY ARTERIAL HYPERTENSION. NO EVIDENCE FOR PULMONARY EMBOLUS. 2. REDEMONSTRATED 4 CM LINGULAR PNEUMATOCELE. THE ADJACENT NODULAR SOFT TISSUE SHOWS MINIMAL INCREASI NG FULLNESS (3.2 CM VERSUS 2.7 CM, PREVIOUSLY). 3. ADDITIONAL 6 MM RIGHT MIDDLE LOBE NODULE IS ALSO MORE DEFINED FROM PRIOR. 4. RECOMMEND 3-6 MONTH FOLLOW-UP TO REASSESS BOTH OF THESE AREAS. IF THERE IS PROGRESSIVE GROWTH, PET /CT CAN BE CONSIDERED TO ASSESS FOR UNDERLYING NEOPLASM. 5. VERTEBRAL COMPRESSION DEFORMITIES, T9 AND T11, NEW FROM 12/21/2016. HOWEVER, THESE ARE STILL PROBABL Y CHRONIC GIVEN THE LACK OF PARAVERTEBRAL HEMATOMA. CORRELATE FOR FOCAL PAIN AT THESE LEVELS. THERE I S MILD RETROPULSION INTO THE SPINAL CANAL AT T11. 6. LEFT VENTRICULAR MYOCARDIUM APPEARS THICKENED. CORRELATE FOR POSSIBLE HYPERTROPHIC CARDIOMYOPATHY.
[2017-08-11 09:52] VITALS: BP 125/79; PULSE 82; TEMP 98.2
== END 2017-08-11 09:52 | disposition home or self-care (01) ==
LOC: EC 06:13
DX: S52.502A Unspecified fracture of the lower end of left radius, initial encounter for closed fracture (principal); S52.202A Unspecified fracture of shaft of left ulna, initial encounter for closed fracture; E87.6 Hypokalemia; R79.89 Other specified abnormal findings of blood chemistry; I10 Essential (primary) hypertension; F17.200 Nicotine dependence, unspecified, uncomplicated; Z53.8 Procedure and treatment not carried out for other reasons; Z79.899 Other long term (current) drug therapy; W19.XXXA Unspecified fall, initial encounter
CPT/HCPCS: 99285; 29125; 96374; 96376; 96375; 36415; 94640; 93005; 85379; 80053; 82550; 82553; 84484; 85025; 71020; 73090; 73110; 71275; J1170 ×2; Q9967; J2405

== ENCOUNTER 2018-02-28 16:30 | Inpatient (IN) | payer MEDICARE, OTHER ==
[2018-02-28] MEDS ORDERED: IPRATROPIUM 0.5 MG/2.5 ML NEBU INHALATION STA (17:00)
[2018-02-28] MEDS ORDERED: methylPREDNISolone SOD SUCCI 125 MG/2 ML VIAL IV STA (17:00)
[2018-02-28] MEDS ORDERED: SODIUM CHLORIDE 0.9% 500 ML IV STA (17:00)
[2018-02-28] MEDS ORDERED: ALBUTEROL NEBULIZED 2.5 MG/3 ML INHALATION STA (17:00)
[2018-02-28] MEDS ORDERED: SODIUM CHLORIDE 0.9% 1,000 ML IV STA (17:00)
[2018-02-28] MEDS ORDERED: LORazepam 2 MG/ML INJ IV STA (17:01)
[2018-02-28] MEDS ORDERED: MORPHINE SULFATE 2 MG/ML SYRINGE IVP STA (17:01)
[2018-02-28 17:11] LABS: Basophils # (A) 0.1 k/uL (0-0.2); Basophils % (A) 1 %; Eosinophils % (A) 0 %; HCT 37.8 % (34.0-46.0); HGB 12.5 gm/dL (11.4-16.0); Lymphocytes # (A) 0.6 k/uL (1.0-4.8); Lymphocytes % (A) 6 %; MCHC 33.1 g/dL (31.0-37.0); MCV 87.5 fL (80.0-100.0); Mean Platelet Volume 6.8; Monocytes # (A) 0.5 k/uL (0-1.0); Monocytes % (A) 4 %; Neutrophils # (A) 9.7 k/uL (1.3-7.7); Neutrophils % (A) 89 %; Platelet Count 298 k/uL (150-450); RBC 4.32 m/uL (3.80-5.40); RDW 14.3 % (11.5-15.5); WBC 10.9 k/uL (3.8-10.6)
--- NOTE | 2018-02-28 17:17 | XR ---
EXAMINATION TYPE: XR chest 1V portable DATE OF EXAM: 02/28/2018 COMPARISON: 08/14/2017 HISTORY: Short of breath TECHNIQUE: Single frontal view of the chest is obtained. FINDINGS: There is no heart failure nor confluent pneumonic infiltrate. Costophrenic angles are jeri r. There are chest leads. There is some mild linear density below the left pulmonary hilum. IMPRESSION: Minimal left infrahilar density appears not significantly different than last exam and c onsistent with scarring and subsegmental atelectasis. No heart failure..
--- NOTE | 2018-02-28 17:19 | ED ---
General Adult HPI - General Chief complaint: Shortness of Breath Stated complaint: CECE Time Seen by Provider: 02/28/18 16:33 Source: patient, EMS, RN notes reviewed, old records reviewed Mode of arrival: EMS Limitations: no limitations - History of Present Illness Initial comments: This is a 77-year-old female the ER for evaluation. Tissues today for evaluation regarding severe shortness of breath with positive cough or congestion. Mild pain. Patient is. History of COPD, presents today by EMS, poor strain secondary severe clinical condition. Patient is recent travel history no sick contacts, multiple recent hospitalizations - Related Data Home Medications Medication Instructions Recorded Confirmed Ibuprofen [Motrin] 800 mg PO BID 04/16/16 02/28/18 Ergocalciferol [Vitamin D2 50,000 unit PO WE 08/11/17 02/28/18 (DRISDOL)] Budesonide-Formot 160-4.5 Mcg 2 puff INHALATION RT-BID 08/16/17 02/28/18 [Symbicort 160-4.5 Mcg Inhaler] Hydrocodone/Acetaminophen [[place] 1 tab PO Q6HR PRN 08/16/17 02/28/18 5-325] Apixaban [Eliquis] 5 mg PO BID@0800,2100 02/28/18 02/28/18 Atorvastatin [Lipitor] 20 mg PO HS@2100 02/28/18 02/28/18 Benazepril HCl [Lotensin] 40 mg PO DAILY 02/28/18 02/28/18 Biotene Mouthwash 1 dose PO BID 02/28/18 02/28/18 Bisacodyl [Dulcolax] 5 mg PO DAILY PRN 02/28/18 02/28/18 Bisacodyl [Dulcolax] 10 mg RECTAL DAILY PRN 02/28/18 02/28/18 Furosemide [Lasix] 20 mg PO DAILY@0800 02/28/18 02/28/18 Ipratropium-Albuterol Nebulize 3 ml INHALATION RT-Q4H PRN 02/28/18 02/28/18 [Duoneb 0.5 mg-3 mg/3 ml Soln] Ipratropium-Albuterol Nebulize 3 ml INHALATION RT-Q6H PRN 02/28/18 02/28/18 [Duoneb 0.5 mg-3 mg/3 ml Soln] Lactose-Reduced Food [Ensure Plus] 120 ml PO BID 02/28/18 02/28/18 Magnesium Hydroxide [Milk of 2,400 mg PO DAILY PRN 02/28/18 02/28/18 Magnesia] Metoprolol Tartrate [Lopressor] 50 mg PO BID@0800,2100 02/28/18 02/28/18 Na Phos,M-B/Na Phos,Di-Ba [Fleet 133 ml RECTAL DAILY PRN 02/28/18 02/28/18 Adult] Potassium Chloride ER [K-Dur 10] 10 meq PO BID@0800,1700 02/28/18 02/28/18 Tiotropium 18 Mcg/Puff [Spiriva] 1 cap INHALATION RT-DAILY@0800 02/28/18 busPIRone HCl [Buspar] 5 mg PO TID PRN 02/28/18 02/28/18 predniSONE 20 mg PO DAILY@0800 02/28/18 02/28/18 Allergies Allergy/AdvReac Type Severity Reaction Status Date / Time ramirez Allergy Unknown Verified 02/28/18 16:43 raimrez flavor Allergy Unknown Verified 02/28/18 16:43 Review of Systems ROS Statement: Those systems with pertinent positive or pertinent negative responses have been documented in the HPI. ROS Other: All systems not noted in ROS Statement are negative. Past Medical History Past Medical History: COPD, Hypertension, Osteoarthritis (OA), Vascular Disorder Additional Past Medical History / Comment(s): emphysema, DDD, back pain, arthritis back and hands, PVD bilateral legs, numbness/tingling bilateral feet with R foot worse History of Any Multi-Drug Resistant Organisms: None Reported Past Surgical History: Hernia Repair, Hysterectomy Additional Past Surgical History / Comment(s): R inguinal hernia repair, colonoscopy with benign polypectomy. Past Anesthesia/Blood Transfusion Reactions: Postoperative Nausea & Vomiting ( PONV) Past Psychological History: Anxiety Smoking Status: Current some day smoker Past Alcohol Use History: Daily Past Drug Use History: None Reported - Past Family History Father Family Medical History: COPD Additional Family Medical History / Comment(s): empysema Mother Family Medical History: AICD/Pacemaker, Myocardial Infarction ([place]) Additional Family Medical History / Comment(s): Mother had a pacemaker. General Exam Limitations: no limitations General appearance: alert, anxious, in distress, cachectic Head exam: Present: atraumatic, normocephalic, normal inspection Eye exam: Present: normal appearance, PERRL, EOMI. Absent: scleral icterus, conjunctival injection, periorbital swelling ENT exam: Present: normal exam, mucous membranes moist Neck exam: Present: normal inspection. Absent: tenderness, meningismus, lymphadenopathy Respiratory exam: Present: respiratory distress, wheezes, accessory muscle use, decreased breath sounds, prolonged expiratory. Absent: rales, rhonchi, stridor Cardiovascular Exam: Present: regular rate, normal rhythm, normal heart sounds. Absent: systolic murmur, diastolic murmur, rubs, gallop, clicks GI/Abdominal exam: Present: soft, normal bowel sounds. Absent: distended, tenderness, guarding, rebound, rigid Extremities exam: Present: normal inspection, full ROM, normal capillary refill. Absent: tenderness, pedal edema, joint swelling, calf tenderness Back exam: Present: normal inspection Neurological exam: Present: alert, oriented X3, CN II-XII intact Psychiatric exam: Present: normal affect, normal mood Skin exam: Present: warm, dry, intact, normal color. Absent: rash Course Vital Signs 02/28/18 02/28/18 02/28/18 16:35 17:03 17:13 Temperature 98.8 F Pulse Rate 75 99 112 H Respiratory 24 28 H 30 H Rate Blood Pressure 166/97 O2 Sat by Pulse 95 Oximetry 02/28/18 02/28/18 02/28/18 17:23 17:28 17:30 Temperature Pulse Rate 106 H 104 H 116 H Respiratory 28 H 26 H 28 H Rate Blood Pressure 167/89 O2 Sat by Pulse 95 Oximetry - Reevaluation(s) Reevaluation #1: 02/28/18 18:06 Medical record is reviewed Reevaluation #2: 02/28/18 18:07 No significant improvement EKG Findings - EKG Comments: EKG Findings:: EKG shows normal sinus rhythm rate of 98, MI 172, QRS 60, QTc 428 Medical Decision Making - Medical Decision Making 77 cemented ER for evaluation, positive history of CVA with severe COPD exacerbation, patient placed on breathing treatment, no improvement breathing treatment here in the ER. Patient to be admitted for continued breathing treatments and monitoring of cardiopulmonary status - Lab Data Result diagrams: 02/28/18 16:45 06/15/18 16:45 Lab Results 02/28/18 02/28/18 02/28/18 Range/Units 16:45 16:45 16:45 WBC 10.9 H (3.8-10.6) k/uL RBC 4.32 (3.80-5.40) m/uL Hgb 12.5 (11.4-16.0) gm/dL Hct 37.8 (34.0-46.0) % MCV 87.5 (80.0-100.0) fL MCH 29.0 (25.0-35.0) pg MCHC 33.1 (31.0-37.0) g/dL RDW 14.3 (11.5-15.5) % Plt Count 298 (150-450) k/uL Neutrophils % 89 % Lymphocytes % 6 % Monocytes % 4 % Eosinophils % 0 % Basophils % 1 % Neutrophils # 9.7 H (1.3-7.7) k/uL Lymphocytes # 0.6 L (1.0-4.8) k/uL Monocytes # 0.5 (0-1.0) k/uL Eosinophils # 0.0 (0-0.7) k/uL Basophils # 0.1 (0-0.2) k/uL PT (9.0-12.0) sec INR (<1.2) APTT (22.0-30.0) sec D-Dimer (<0.60) mg/L FEU Sodium 139 (137-145) mmol/L Potassium 5.2 H (3.5-5.1) mmol/L Chloride 100 (98-107) mmol/L Carbon Dioxide 25 (22-30) mmol/L Anion Gap 14 mmol/L BUN 29 H (7-17) mg/dL Creatinine 0.89 (0.52-1.04) mg/dL Est GFR (CKD-EPI)AfAm 73 (>60 ml/min/1.73 sqM) Est GFR (CKD-EPI)NonAf 63 (>60 ml/min/1.73 sqM) Glucose 158 H (74-99) mg/dL Calcium 9.7 (8.4-10.2) mg/dL Total Bilirubin 0.8 (0.2-1.3) mg/dL AST 40 H (14-36) U/L ALT 37 (9-52) U/L Alkaline Phosphatase 43 (38-126) U/L Total Creatine Kinase 85 (30-135) U/L CK-MB (CK-2) 2.5 H* (0.0-2.4) ng/mL CK-MB (CK-2) Rel Index 2.9 Troponin I <0.012 (0.000-0.034) ng/mL NT-Pro-B Natriuret Pep pg/mL Total Protein 6.7 (6.3-8.2) g/dL Albumin 4.3 (3.5-5.0) g/dL 02/28/18 02/28/18 Range/Units 16:45 16:45 WBC (3.8-10.6) k/uL RBC (3.80-5.40) m/uL Hgb (11.4-16.0) gm/dL Hct (34.0-46.0) % MCV (80.0-100.0) fL MCH (25.0-35.0) pg MCHC (31.0-37.0) g/dL RDW (11.5-15.5) % Plt Count (150-450) k/uL Neutrophils % % Lymphocytes % % Monocytes % % Eosinophils % % Basophils % % Neutrophils # (1.3-7.7) k/uL Lymphocytes # (1.0-4.8) k/uL Monocytes # (0-1.0) k/uL Eosinophils # (0-0.7) k/uL Basophils # (0-0.2) k/uL PT 10.1 (9.0-12.0) sec INR 1.0 (<1.2) APTT 20.1 L (22.0-30.0) sec D-Dimer 0.48 (<0.60) mg/L FEU Sodium (137-145) mmol/L Potassium (3.5-5.1) mmol/L Chloride (98-107) mmol/L Carbon Dioxide (22-30) mmol/L Anion Gap mmol/L BUN (7-17) mg/dL Creatinine (0.52-1.04) mg/dL Est GFR (CKD-EPI)AfAm (>60 ml/min/1.73 sqM) Est GFR (CKD-EPI)NonAf (>60 ml/min/1.73 sqM) Glucose (74-99) mg/dL Calcium (8.4-10.2) mg/dL Total Bilirubin (0.2-1.3) mg/dL AST (14-36) U/L ALT (9-52) U/L Alkaline Phosphatase (38-126) U/L Total Creatine Kinase (30-135) U/L CK-MB (CK-2) (0.0-2.4) ng/mL CK-MB (CK-2) Rel Index Troponin I (0.000-0.034) ng/mL NT-Pro-B Natriuret Pep 367 pg/mL Total Protein (6.3-8.2) g/dL Albumin (3.5-5.0) g/dL - Radiology Data Radiology results: report reviewed (Chest x-rays negative for acute disease), image reviewed Disposition Clinical Impression: Hypoxia Disposition: ADMITTED IP TO THIS [facility] Condition: Fair Referrals: Thom Guzman MD [Primary Care Provider] - 1-2 days
[2018-02-28 17:20] LABS: Albumin 4.3 g/dL (3.5-5.0); Calcium 9.7 mg/dL (8.4-10.2); Total Bilirubin 0.8 mg/dL (0.2-1.3); Total Protein 6.7 g/dL (6.3-8.2)
[2018-02-28 17:22] LABS: Potassium 5.2 mmol/L (3.5-5.1)
[2018-02-28 17:33] LABS: Creatine Kinase 85 U/L (30-135)
[2018-02-28 17:39] LABS: D-Dimer 0.48 mg/L FEU (<0.60); Prothrombin Time 10.1 sec (9.0-12.0)
[2018-02-28 17:47] LABS: Creatine Kinase MB 2.5 ng/mL (0.0-2.4); Troponin I <0.012 ng/mL (0.000-0.034)
[2018-02-28 17:48] LABS: Partial Thromboplastin Time 20.1 sec (22.0-30.0)
[2018-02-28] MEDS ORDERED: DIAZEPAM 5 MG/ML 2 ML INJ IVP STA (18:16)
[2018-02-28] MEDS: IPRATROPIUM-ALBUTEROL 3 ML NEB INHALATION SCH (20:17)
[2018-02-28 21:04] LABS: Glucose,Whole Blood 165 mg/dL (75-99)
[2018-02-28] MEDS: INSULIN ASPART 100 UNIT/ML 1 ML 10 ML VIAL SQ SCH (21:43)
[2018-02-28] MEDS: LISINOPRIL 20 MG TAB PO SCH (21:43)
[2018-02-28] MEDS: HYDROcodone/APAP 5-325MG 1 EACH TAB PO PRN (21:43)
[2018-02-28] MEDS: APIXABAN 5 MG TAB PO SCH (21:44)
[2018-02-28] MEDS: IBUPROFEN 800 MG TAB PO SCH (21:44)
[2018-02-28] MEDS: methylPREDNISolone SOD SUCCI 40 MG/ML 1 ML VIAL IV SCH (22:57)
[2018-03-01] MEDS ORDERED: methylPREDNISolone SOD SUCCI 125 MG/2 ML VIAL IV SCH
[2018-03-01] MEDS: busPIRone HCl 5 MG TAB PO SCH ×4 (00:56→20:24)
[2018-03-01 01:35] LABS: Hemoglobin A1C 6.7 % (4.0-6.0)
[2018-03-01 06:04] LABS: Glucose,Whole Blood 165 mg/dL (75-99)
[2018-03-01] MEDS: INSULIN ASPART 100 UNIT/ML 1 ML 10 ML VIAL SQ SCH ×4 (06:31→21:17)
[2018-03-01] MEDS: HYDROcodone/APAP 5-325MG 1 EACH TAB PO PRN ×3 (06:53→20:24)
[2018-03-01] MEDS ORDERED: SYMBICORT 160-4.5 MCG INHALER INHALATION SCH (08:00)
[2018-03-01] MEDS: IPRATROPIUM-ALBUTEROL 3 ML NEB INHALATION SCH ×4 (08:30→19:55)
[2018-03-01] MEDS ORDERED: LORazepam 2 MG/ML INJ IV PRN (08:59)
[2018-03-01] MEDS ORDERED: ENOXAPARIN 40 MG/0.4 ML SYRINGE SQ SCH (09:00)
[2018-03-01] MEDS ORDERED: FUROSEMIDE 10 MG/ML 4 ML VIAL IV STA (09:03)
[2018-03-01] MEDS ORDERED: MAGNESIUM HYDROXIDE 2,400 MG/10 ML CUP PO PRN (09:22)
[2018-03-01] MEDS ORDERED: NA PHOS,M-B/NA PHOS,DI-BA 133 ML ENEMA RECTAL PRN (09:22)
[2018-03-01] MEDS ORDERED: BISACODYL 10 MG SUPP RECTAL PRN (09:22)
[2018-03-01] MEDS ORDERED: BISACODYL 5 MG TABLET.DR PO PRN (09:22)
[2018-03-01] MEDS ORDERED: IPRATROPIUM-ALBUTEROL 3 ML NEB INHALATION PRN (09:22)
[2018-03-01] MEDS ORDERED: busPIRone HCl 5 MG TAB PO PRN (09:28)
--- NOTE | 2018-03-01 09:42 | P.CNPUL ---
History of Present Illness Consult date: 03/01/18 Reason for consult: dyspnea, COPD, hypoxemia, abnormal CXR/CT Chief complaint: Respiratory failure History of present illness: Pulmonary consult dated 03/01/2018 77-year-old female patient who presented to the emergency room with complaints of shortness of breath. The patient apparently has a history of severe COPD and was recently in the hospital last year. The patient apparently is oxygen dependent. Her primary is Dr. Ziyad nova. My partner saw the patient on her last admission. She is a no code patient. Very poor historian. Comes in with complaints of increasing shortness of breath cough chest congestion and wheezing and tightness. Currently, the patient is on BiPAP therapy. She is a very frail woman and the nurses are having a difficult time getting any IVs in place. I told them to stop the IV attempts and change her to oral medications. In addition to COPD, she has a history of hypertension DJD chronic back pain peripheral vascular occlusive disease arthritis. She appears to be steroid and oxygen dependent. Review of Systems 12 point review of systems cannot be obtained as the patient is quite dyspneic and tachypnea and is currently on the BiPAP device. Past Medical History Past Medical History: Atrial Fibrillation, Heart Failure, COPD, Hyperlipidemia, Hypertension, Osteoarthritis (OA), Renal Disease, Vascular Disorder Additional Past Medical History / Comment(s): emphysema, DDD, back pain, arthritis back and hands, PVD bilateral legs, numbness/tingling bilateral feet with R foot worse History of Any Multi-Drug Resistant Organisms: None Reported Past Surgical History: Hernia Repair, Hysterectomy Additional Past Surgical History / Comment(s): R inguinal hernia repair, colonoscopy with benign polypectomy. Past Anesthesia/Blood Transfusion Reactions: Postoperative Nausea & Vomiting ( PONV) Past Psychological History: Anxiety Additional Psychological History / Comment(s): lives at [facility] Smoking Status: Current every day smoker Past Drug Use History: None Reported - Past Family History Father Family Medical History: COPD Additional Family Medical History / Comment(s): empysema Mother Family Medical History: AICD/Pacemaker, Myocardial Infarction ([place]) Additional Family Medical History / Comment(s): Mother had a pacemaker. Medications and Allergies Home Medications Medication Instructions Recorded Confirmed Type Ibuprofen [Motrin] 800 mg PO BID 04/16/16 02/28/18 History Ergocalciferol [Vitamin D2 50,000 unit PO WE 08/11/17 02/28/18 History (DRISDOL)] Budesonide-Formot 160-4.5 Mcg 2 puff INHALATION RT-BID 08/16/17 02/28/18 History [Symbicort 160-4.5 Mcg Inhaler] Hydrocodone/Acetaminophen [[place] 1 tab PO Q6HR PRN 08/16/17 02/28/18 History 5-325] Apixaban [Eliquis] 5 mg PO BID@0800,209902/28/18 02/28/18 History Atorvastatin [Lipitor] 20 mg PO HS@209902/28/18 02/28/18 History Benazepril HCl [Lotensin] 40 mg PO DAILY 02/28/18 02/28/18 History Biotene Mouthwash 1 dose PO BID 02/28/18 02/28/18 History Bisacodyl [Dulcolax] 5 mg PO DAILY PRN 02/28/18 02/28/18 History Bisacodyl [Dulcolax] 10 mg RECTAL DAILY PRN 02/28/18 02/28/18 History Furosemide [Lasix] 20 mg PO DAILY@0800 02/28/18 02/28/18 History Ipratropium-Albuterol Nebulize 3 ml INHALATION RT-Q4H PRN 02/28/18 02/28/18 History [Duoneb 0.5 mg-3 mg/3 ml Soln] Ipratropium-Albuterol Nebulize 3 ml INHALATION RT-Q6H PRN 02/28/18 02/28/18 History [Duoneb 0.5 mg-3 mg/3 ml Soln] Lactose-Reduced Food [Ensure Plus] 120 ml PO BID 02/28/18 02/28/18 History Magnesium Hydroxide [Milk of 2,400 mg PO DAILY PRN 02/28/18 02/28/18 History Magnesia] Metoprolol Tartrate [Lopressor] 50 mg PO BID@0800,209902/28/18 02/28/18 History Na Phos,M-B/Na Phos,Di-Ba [Fleet 133 ml RECTAL DAILY PRN 02/28/18 02/28/18 History Adult] Potassium Chloride ER [K-Dur 10] 10 meq PO BID@0800,1700 02/28/18 02/28/18 History Tiotropium 18 Mcg/Puff [Spiriva] 1 cap INHALATION RT-DAILY@0800 02/28/18 History busPIRone HCl [Buspar] 5 mg PO TID PRN 02/28/18 02/28/18 History predniSONE 20 mg PO DAILY@0800 02/28/18 02/28/18 History Allergies Allergy/AdvReac Type Severity Reaction Status Date / Time ramirez Allergy Unknown Verified 02/28/18 16:43 ramirez flavor Allergy Unknown Verified 02/28/18 16:43 Physical Exam Osteopathic Statement: *. No significant issues noted on an osteopathic structural exam other than those noted in the History and Physical/Consult. Vitals: Vital Signs Temp Pulse Pulse Resp BP BP Pulse Ox 03/01/18 08:57 94 03/01/18 08:38 92 03/01/18 05:14 21 94 L 03/01/18 04:00 98.3 F 96 21 166/82 95 03/01/18 00:00 98.1 F 90 22 184/78 96 02/28/18 20:17 91 02/28/18 20:00 98.8 F 89 19 190/83 97 02/28/18 19:10 102 H 20 169/80 97 02/28/18 18:45 98 F 89 20 164/72 97 02/28/18 18:37 98.8 F 89 20 190/83 97 02/28/18 17:30 116 H 28 H 02/28/18 17:28 104 H 26 H 167/89 95 02/28/18 17:23 106 H 28 H 02/28/18 17:13 112 H 30 H 02/28/18 17:03 99 28 H 02/28/18 16:35 98.8 F 75 24 166/97 95 Intake and Output 02/28/18 03/01/18 03/01/18 22:59 06:59 14:59 Intake Total 60 100 230 Output Total 700 Balance 60 -600 230 Intake: Intake, IV Titration 60 100 Amount Sodium Chloride 0.9% 1, 60 100 000 ml @ 100 mls/hr IV . Q10H STA Rx#:[id number] Oral 230 Output: Urine 700 Straight 700 Other: # Voids 1 1 Weight 55 kg 43 kg Patient appears to be a very short of breath. BiPAP mask in place. The patient is breathing between 30-35 breaths per minute. HEENT examination is grossly unremarkable. Mucous membranes are moist. Neck supple. Full range of motion. No adenopathy thyromegaly or neck vein distention. Cardiovascular examination reveals regular rhythm rate. S1-S2 normal. No S3 or S4. No discernible murmur noted. Heart sounds are distant. Lungs reveal coarse bilateral inspiratory and expiratory wheezes or rhonchi. Breath sounds are severely diminished. There is prolongation. Breath sounds are equal bilaterally. Abdomen soft bowel sounds are heard. No masses or tenderness. Extremities are intact. No cyanosis clubbing or edema. There is diffuse livedo reticularis. Skin is without rash or lesion. Neurologic examination is very difficult to assess at this time. Results - Laboratory Findings CBC and BMP: 02/28/18 16:45 02/28/18 16:45 PT/INR, D-dimer PT 10.1 sec (9.0-12.0) 02/28/18 16:45 INR 1.0 (<1.2) 02/28/18 16:45 D-Dimer 0.48 mg/L FEU (<0.60) 02/28/18 16:45 Abnormal lab findings: Abnormal Labs 02/28/18 02/28/18 02/28/18 16:45 16:45 16:45 WBC 10.9 H Neutrophils # 9.7 H Lymphocytes # 0.6 L APTT Potassium 5.2 H BUN 29 H Glucose 158 H POC Glucose (mg/dL) Hemoglobin A1c AST 40 H CK-MB (CK-2) 2.5 H* 02/28/18 02/28/18 02/28/18 16:45 16:45 21:03 WBC Neutrophils # Lymphocytes # APTT 20.1 L Potassium BUN Glucose POC Glucose (mg/dL) 165 H Hemoglobin A1c 6.7 H AST CK-MB (CK-2) 03/01/18 06:02 WBC Neutrophils # Lymphocytes # APTT Potassium BUN Glucose POC Glucose (mg/dL) 165 H Hemoglobin A1c AST CK-MB (CK-2) - Diagnostic Findings Chest x-ray: image reviewed (Chest x-ray labs and medications are reviewed. Chest x-ray has some chronic changes in the left chest which are unchanged.) Assessment and Plan Assessment: Assessment Hypoxemic respiratory failure in a patient with severe oxygen and steroid dependent COPD History of hypertension History of DJD History of peripheral vascular occlusive disease Chronic back pain History of hyperlipidemia History of atrial fibrillation Plan: Plan dated 03/01/2018 We will opt for more conservative approach in this patient. We will not attempt any additional IVs. We'll switch her medications to oral. She should be treated in a conservative fashion. She has quite severe COPD. The BiPAP is fine. Oral prednisone. We'll give her updrafts 4 times a day and when necessary with DuoNeb as well as Pulmicort 1 mg mixed with performance twice a day. She'll be placed on oral prednisone. Additional recommendations and suggestions are forthcoming. Time with Patient: Greater than 30
[2018-03-01] MEDS: APIXABAN 5 MG TAB PO SCH ×2 (09:49→20:24)
[2018-03-01] MEDS: FUROSEMIDE 20 MG TAB PO SCH (09:49)
[2018-03-01] MEDS: LISINOPRIL 20 MG TAB PO SCH (09:49)
[2018-03-01] MEDS: IBUPROFEN 800 MG TAB PO SCH ×2 (09:49→20:24)
[2018-03-01] MEDS: methylPREDNISolone SOD SUCCI 40 MG/ML 1 ML VIAL IV SCH (09:57)
[2018-03-01] MEDS: LORazepam 1 MG TAB PO PRN ×2 (11:32→20:25)
[2018-03-01 11:40] LABS: Glucose,Whole Blood 405 mg/dL (75-99)
[2018-03-01 11:40] LABS: Glucose,Whole Blood 182 mg/dL (75-99)
[2018-03-01 16:54] LABS: Glucose,Whole Blood 136 mg/dL (75-99)
--- NOTE | 2018-03-01 17:07 | HP ---
HISTORY AND PHYSICAL CHIEF COMPLAINT: Difficulty breathing. HISTORY OF PRESENT ILLNESS: This is another admission for this 77-year-old white female who has advanced and end- stage COPD. She has been in [facility] for several months. She apparently had more difficulty breathing, was brought to the emergency room. She is in extremis at this time and the history cannot be obtained and it does not look as though this was related to congestive heart failure, embolism, etc. Past medical history, family history personal and social history are all unchanged from recent admitting and discharge summaries and no other history is available at this time. PHYSICAL EXAMINATION: Blood pressure 170/76 with a pulse of 110, and she is extremely agitated. She will not leave BiPAP in place. Head, ears, eyes, nose, mouth, and throat are normal. The chest demonstrates increased AP diameter with almost no breath sounds. Cardiac demonstrates sinus tachycardia. The abdomen is soft and there are no masses. EXTREMITIES: Normal. Neurologically, she is extremely agitated. IMPRESSION: 1. Acute respiratory failure. 2. End-stage chronic obstructive pulmonary disease. 3. Hypertension. PLAN: 1. Bed rest. 2. IV fluids. 3. Updrafts. 4. Steroids. 5. Consult pulmonology. 6. She requests to be changed to a DO NOT RESUSCITATE status. 7. Try single dose of Lasix IV. 8. She may quickly become a candidate palliative care. MMODL / IJN: [id number] /
--- NOTE | 2018-03-01 17:14 | PN ---
PROGRESS NOTE DATE OF SERVICE: 03/01/18 CHIEF COMPLAINT: Acute respiratory failure. HISTORY OF PRESENT ILLNESS: This lady is becoming even more agitated. She will not leave BiPAP in place. She cannot answer questions or communicate due to her extreme anxiety. PHYSICAL EXAM: Breath sounds are almost inaudible. Color is still good. Cardiac exam is normal. Abdomen is soft. IMPRESSION: 1. Acute respiratory failure. 2. End-stage chronic obstructive pulmonary disease. PLAN: Try dose of Lasix for diuresis and await pulmonology's recommendations. MMODL / IJN: [id number] /
[2018-03-01] MEDS: POTASSIUM CHLORIDE ER 10 MEQ TAB.ER.PRT PO SCH (17:16)
[2018-03-01] MEDS: BUDESONIDE 1 MG/2 ML NEBU INHALATION SCH (19:55)
[2018-03-01] MEDS: FORMOTEROL FUMARATE 20 MCG/2 ML NEBU INHALATION SCH (19:55)
[2018-03-01] MEDS ORDERED: NON-FORMULARY DRUG (Lactose-Reduced Food [Ensure Plus] 120 ML) PO SCH (21:00)
[2018-03-01 21:15] LABS: Glucose,Whole Blood 133 mg/dL (75-99)
[2018-03-02] MEDS: HYDROcodone/APAP 5-325MG 1 EACH TAB PO PRN (05:44)
[2018-03-02] MEDS: LORazepam 1 MG TAB PO PRN ×2 (05:46→18:23)
[2018-03-02 05:49] LABS: Glucose,Whole Blood 161 mg/dL (75-99)
[2018-03-02] MEDS: INSULIN ASPART 100 UNIT/ML 1 ML 10 ML VIAL SQ SCH ×4 (06:57→21:22)
[2018-03-02] MEDS: busPIRone HCl 5 MG TAB PO SCH ×3 (07:49→20:52)
[2018-03-02] MEDS: POTASSIUM CHLORIDE ER 10 MEQ TAB.ER.PRT PO SCH ×2 (08:11→17:16)
[2018-03-02] MEDS: IBUPROFEN 800 MG TAB PO SCH ×2 (08:11→20:50)
[2018-03-02] MEDS: LISINOPRIL 20 MG TAB PO SCH (08:11)
[2018-03-02] MEDS: FUROSEMIDE 20 MG TAB PO SCH (08:11)
[2018-03-02] MEDS: APIXABAN 5 MG TAB PO SCH ×2 (08:11→20:52)
[2018-03-02] MEDS: BUDESONIDE 1 MG/2 ML NEBU INHALATION SCH ×2 (08:29→20:58)
[2018-03-02] MEDS: IPRATROPIUM-ALBUTEROL 3 ML NEB INHALATION SCH ×4 (08:29→20:58)
[2018-03-02] MEDS: FORMOTEROL FUMARATE 20 MCG/2 ML NEBU INHALATION SCH ×2 (08:29→20:58)
[2018-03-02] MEDS: predniSONE 10 MG TAB PO SCH (09:15)
--- NOTE | 2018-03-02 09:58 | P.PN ---
Subjective Progress Note Date: 03/02/18 Principal diagnosis: Severe COPD exacerbation Progress note dated 03/02/2018 77-year-old no code patient with a history of hypoxemic respiratory failure hypertension DJD PVOD chronic back pain hyperlipidemia and chronic atrial fibrillation. The patient is doing about the same as she did yesterday. She's been on BiPAP pretty much the entire time. She is not a particularly good historian. Very short of breath. Lots of conversational dyspnea. She is a no code patient. The patient was managed primarily with oral medications as IV access is very poor. She was actually refusing IV access. Objective - Vital Signs Vital signs: Vital Signs Temp 98.4 F 03/02/18 04:00 Pulse 92 03/02/18 08:50 Resp 20 03/02/18 04:00 BP 171/94 03/02/18 04:00 Pulse Ox 98 03/02/18 08:29 Intake & Output 03/01/18 03/02/18 03/02/18 18:59 06:59 18:59 Intake Total 626 Output Total 375 Balance 251 Weight 43 kg 42 kg Intake: Oral 626 Output: Urine 375 Other: # Voids 2 3 - Exam Patient is very short of breath with BiPAP mask in place. She is breathing about 28-32 breaths per minute. HEENT examination is grossly unremarkable. Mucous membranes are moist. Neck supple. Full range of motion. No adenopathy thyromegaly or neck vein distention. Cardiovascular examination reveals mildly irregular rhythm and rate. Heart rate about 100. S1-S2 normal. No S3-S4. No clear murmur is noted. Heart sounds were distant. Lungs reveal coarse inspiratory and expiratory rhonchi and wheezes. Breath sounds are diminished. Abdomen soft and bowel sounds are heard. Extremities are intact. No cyanosis clubbing or edema. Skin without rash. Neurologic examination is very difficult to perform. - Labs CBC & Chem 7: 02/28/18 16:45 03/01/18 15:31 Labs: Abnormal Lab Results - Last 24 Hours (Table) 03/01/18 03/01/18 03/01/18 Range/Units 11:33 11:36 16:34 POC Glucose (mg/dL) 405 H 182 H 136 H (75-99) mg/dL 03/01/18 03/02/18 Range/Units 21:14 05:47 POC Glucose (mg/dL) 133 H 161 H (75-99) mg/dL Assessment and Plan Assessment: Assessment Hypoxemic respiratory failure in a patient with severe oxygen and steroid dependent COPD History of hypertension History of DJD History of peripheral vascular occlusive disease Chronic back pain History of hyperlipidemia History of atrial fibrillation The patient is a DO NOT RESUSCITATE and currently refusing IV access. Plan: Plan dated 03/01/2018 We will opt for more conservative approach in this patient. We will not attempt any additional IVs. We'll switch her medications to oral. She should be treated in a conservative fashion. She has quite severe COPD. The BiPAP is fine. Oral prednisone. We'll give her updrafts 4 times a day and when necessary with DuoNeb as well as Pulmicort 1 mg mixed with performance twice a day. She'll be placed on oral prednisone. Additional recommendations and suggestions are forthcoming. Plan dated 03/02/2018 The patient looks about the same as she did yesterday. Maybe less short of breath just a bit. Continues on BiPAP. Medications were reviewed. She's on appropriate medications including oral prednisone. Did not want any additional attempts at IV placement. The patient otherwise is doing about the same. We' ll continue to follow. Prognosis is poor. She is on all appropriate medications at this time. Time with Patient: Less than 30
[2018-03-02 11:03] LABS: Basophils % (A) 0 %; Eosinophils # (A) 0.1 k/uL (0-0.7); Eosinophils % (A) 1 %; HCT 35.2 % (34.0-46.0); HGB 11.4 gm/dL (11.4-16.0); Lymphocytes # (A) 0.7 k/uL (1.0-4.8); Lymphocytes % (A) 5 %; MCH 28.6 pg (25.0-35.0); MCHC 32.5 g/dL (31.0-37.0); MCV 88.1 fL (80.0-100.0); Mean Platelet Volume 6.8; Monocytes # (A) 0.8 k/uL (0-1.0); Monocytes % (A) 6 %; Neutrophils # (A) 12.4 k/uL (1.3-7.7); Neutrophils % (A) 88 %; Platelet Count 258 k/uL (150-450); RDW 14.6 % (11.5-15.5)
--- NOTE | 2018-03-02 11:05 | XR ---
EXAMINATION TYPE: XR chest 1V portable DATE OF EXAM: 03/02/2018 COMPARISON: 02/28/2018 HISTORY: COPD TECHNIQUE: Single frontal view of the chest is obtained. FINDINGS: Bilateral consolidation. No pneumothorax. Interstitium stable. Heart size within normal li mits. No pleural effusion. Hyperinflation stable. IMPRESSION: 1. Subsegmental changes in the left perihilar region and right lower lobe are stable correlate for at electasis versus infiltrate. 2. Correlate for COPD.
[2018-03-02 11:11] LABS: Calcium 9.7 mg/dL (8.4-10.2); Potassium 3.6 mmol/L (3.5-5.1)
[2018-03-02] MEDS: HYDROcodone/APAP 10-325MG 1 EACH TAB PO PRN ×3 (11:39→23:05)
[2018-03-02 11:53] LABS: Glucose,Whole Blood 167 mg/dL (75-99)
[2018-03-02 16:31] LABS: Glucose,Whole Blood 164 mg/dL (75-99)
--- NOTE | 2018-03-02 20:36 | PN ---
PROGRESS NOTE CHIEF COMPLAINT: Acute respiratory failure. HISTORY OF PRESENT ILLNESS: This lady is still alive and still . She is sitting up in a chair. Color is pink. PHYSICAL EXAM: She is extremely dyspneic. Breath sounds are . Cardiac exam demonstrates tachycardia. 1. Chronic obstructive pulmonary disease. PLAN: Remove telemetry and move to regular floor. If she continues to . MMODL / IJN: [id number] /
[2018-03-02 21:08] LABS: Glucose,Whole Blood 118 mg/dL (75-99)
[2018-03-03] MEDS: LORazepam 1 MG TAB PO PRN ×2 (01:25→22:59)
[2018-03-03 05:50] LABS: Glucose,Whole Blood 134 mg/dL (75-99)
[2018-03-03] MEDS: INSULIN ASPART 100 UNIT/ML 1 ML 10 ML VIAL SQ SCH ×4 (06:54→21:06)
[2018-03-03] MEDS: POTASSIUM CHLORIDE ER 10 MEQ TAB.ER.PRT PO SCH ×2 (07:50→15:43)
[2018-03-03] MEDS: FUROSEMIDE 20 MG TAB PO SCH (07:50)
[2018-03-03] MEDS: IBUPROFEN 800 MG TAB PO SCH ×2 (07:50→21:06)
[2018-03-03] MEDS: busPIRone HCl 5 MG TAB PO SCH ×3 (07:51→21:06)
[2018-03-03] MEDS: LISINOPRIL 20 MG TAB PO SCH (07:51)
[2018-03-03] MEDS: APIXABAN 5 MG TAB PO SCH ×2 (07:51→21:06)
[2018-03-03] MEDS: predniSONE 10 MG TAB PO SCH (07:51)
[2018-03-03] MEDS: IPRATROPIUM-ALBUTEROL 3 ML NEB INHALATION SCH ×4 (09:10→18:51)
[2018-03-03] MEDS: BUDESONIDE 1 MG/2 ML NEBU INHALATION SCH ×2 (09:10→18:51)
[2018-03-03] MEDS: FORMOTEROL FUMARATE 20 MCG/2 ML NEBU INHALATION SCH (09:11)
[2018-03-03] MEDS: HYDROcodone/APAP 10-325MG 1 EACH TAB PO PRN ×3 (10:00→21:18)
[2018-03-03 11:37] LABS: Glucose,Whole Blood 262 mg/dL (75-99)
--- NOTE | 2018-03-03 13:07 | P.PN ---
Subjective Progress Note Date: 03/03/18 Principal diagnosis: . Exacerbation of chronic obstructive pulmonary disease. Progress note dated 03/02/2018 77-year-old no code patient with a history of hypoxemic respiratory failure hypertension DJD PVOD chronic back pain hyperlipidemia and chronic atrial fibrillation. The patient is doing about the same as she did yesterday. She's been on BiPAP pretty much the entire time. She is not a particularly good historian. Very short of breath. Lots of conversational dyspnea. She is a no code patient. The patient was managed primarily with oral medications as IV access is very poor. She was actually refusing IV access. On 03/03/2018 patient seen in follow-up on [facility] care unit. She is awake, denies any acute distress, did not require BiPAP support last night, and he was removed from the room, with scant 4 L per nasal cannula with pulse ox of 100%. Afebrile, vital signs are stable. Lung sounds are positive for end expiratory wheezes, and fine rales at the bases. She continues on oral Lasix 20 mg daily, nebulized bronchodilators, and oral prednisone 30 mg daily. She is generally weak, remains limited in terms of exercise capacity. She has been refusing any IV access, and all her medications have been switched to oral medications. Objective - Vital Signs Vital signs: Vital Signs Temp 96.9 F L 03/02/18 15:00 Pulse 98 03/03/18 09:33 Resp 20 03/03/18 07:40 BP 152/79 03/03/18 07:00 Pulse Ox 100 03/03/18 09:11 Intake & Output 03/02/18 03/03/18 03/03/18 18:59 06:59 18:59 Intake Total 120 50 520 Output Total 100 Balance 120 50 420 Intake: Oral 120 50 520 Output: Urine 100 Other: Voiding Method Bedside Commode Bedside Commode Bedpan Bedpan # Voids 1 1 - Exam Patient is awake, alert, in no distress, currently on 4 L per nasal cannula, seems fairly comfortable at rest. HEENT examination is grossly unremarkable. Mucous membranes are moist. Neck supple. Full range of motion. No adenopathy thyromegaly or neck vein distention. Cardiovascular examination reveals mildly irregular rhythm and rate. Heart rate about 100. S1-S2 normal. No S3-S4. No clear murmur is noted. Heart sounds were distant. Lungs reveal expiratory wheezes, and fine bibasilar crackles. Breath sounds are diminished. Abdomen soft and bowel sounds are heard. Extremities are intact. No cyanosis clubbing or edema. Skin without rash. Neurologic examination is very difficult to perform. - Labs CBC & Chem 7: 03/02/18 10:41 03/02/18 10:41 Labs: Abnormal Lab Results - Last 24 Hours (Table) 03/02/18 03/02/18 03/03/18 Range/Units 16:28 21:01 05:45 POC Glucose (mg/dL) 164 H 118 H 134 H (75-99) mg/dL 03/03/18 Range/Units 11:27 POC Glucose (mg/dL) 262 H (75-99) mg/dL Assessment and Plan Plan: Assessment: Hypoxemic respiratory failure in a patient with severe oxygen and steroid dependent COPD History of hypertension History of DJD History of peripheral vascular occlusive disease Chronic back pain History of hyperlipidemia History of atrial fibrillation The patient is a DO NOT RESUSCITATE and currently refusing IV access. Plan: Plan dated 03/01/2018 We will opt for more conservative approach in this patient. We will not attempt any additional IVs. We'll switch her medications to oral. She should be treated in a conservative fashion. She has quite severe COPD. The BiPAP is fine. Oral prednisone. We'll give her updrafts 4 times a day and when necessary with DuoNeb as well as Pulmicort 1 mg mixed with performance twice a day. She'll be placed on oral prednisone. Additional recommendations and suggestions are forthcoming. Plan dated 03/02/2018 The patient looks about the same as she did yesterday. Maybe less short of breath just a bit. Continues on BiPAP. Medications were reviewed. She's on appropriate medications including oral prednisone. Did not want any additional attempts at IV placement. The patient otherwise is doing about the same. We' ll continue to follow. Prognosis is poor. She is on all appropriate medications at this time. Plan dated 03/03/2018 Patient did not require BiPAP support last night, seems to be fairly comfortable on 4 L per nasal cannula. She remains generally weak, and does get dyspneic with any exertion. No distress. Per nursing report patient's does not want to discuss palliative care at this time, but her CODE STATUS is DO NOT RESUSCITATE. We'll continue with current medical treatment, continue current dose of prednisone, nebulized bronchodilators. I performed a history & physical examination of the patient and discussed their management with my nurse practitioner, Jolene Roland. I reviewed the nurse practitioner's note and agree with the documented findings and plan of care. Lung sounds are positive for end expiratory wheezes, and fine bibasilar rales. The findings and the impression was discussed with the patient. I attest to the documentation by the nurse practitioner. Time with Patient: Less than 30
--- NOTE | 2018-03-03 15:17 | CDI ---
Last Revision, August 2017 Documentation Clarification Form Date: 03/03/2018 12:00:00 AM From: Jenna Timmons RN, CCDS Admit Date: 02/28/2018 6:01:00 PM Patient Name: Ruth Ann Day Visit Number: [id number] Discharge Date: ATTENTION: The Clinical Documentation Specialists (CDI) and [facility] Coding Staff appreciate your assistance in clarifying documentation. Please respond to the clarification below the line at the bottom and electronically sign. The CDI & [facility] Coding staff will review the response and follow-up if needed. Please note: Queries are made part of the Legal Health Record. If you have any questions, please contact the author of this message via ITS. Dr. Hugh Lockhart The patient presented with severe shortness of breath with positive cough and congestion Clinical Indicators: ED evaluation respiratory exam: respiratory distress, wheezes, accessory muscle use, decreased breath sounds, prolonged expiratory. History/Risk Factors: End stage COPD, Hypertension, O2 dependent Tobacco use: Current same day smoker Vital signs: 190/83 89 20 98.8 97 BIPAP Treatment: Telematry monitor Breathing tx: Duoneb Inhalation Piulmicort Inhalation BiPAP Monitor O2 Sat's Prednisone PO In your professional opinion, can you please clarify the acuity with the Specificity of following conditions? Acuity: Acute Chronic Acute on Chronic Specificity: Respiratory Failure, further specify (if known): With hypercapnia? With hypoxia? Unable to determine Other, specify Please continue to document in your progress notes and discharge summary in order to capture severity of illness and risk of mortality. Include clinical findings that support your diagnosis. Acute on chronic hypoxemic respiratory failure secondary to an acute exacerbation of severe oxygen dependent, steroid dependent chronic obstructive pulmonary disease. MTDD
[2018-03-03 16:30] LABS: Glucose,Whole Blood 210 mg/dL (75-99)
--- NOTE | 2018-03-03 18:10 | PN ---
PROGRESS NOTE CHIEF COMPLAINT: Acute respiratory failure and COPD. HISTORY OF PRESENT ILLNESS: This lady is holding on. She may be slightly better. She remains alert, but she is fatiguing. PHYSICAL EXAM: Face is slightly flushed, but not cyanotic. Breath sounds are extremely poor with scattered rales. Cardiac exam is normal. Abdomen is soft. IMPRESSION: 1. Acute respiratory failure. 2. Exacerbation of chronic obstructive pulmonary disease. 3. Hypokalemia. PLAN: Continue on current program. She is doing slightly better. I talked to her about other treatment options such as palliative care, hospice, etc. and asked her to think about these. I will see how she does over the next 24 hours. MMFARHEENL / DEANN: [id number] /
[2018-03-03 20:44] LABS: Glucose,Whole Blood 309 mg/dL (75-99)
[2018-03-04] MEDS: LORazepam 1 MG TAB PO PRN ×3 (06:36→22:28)
[2018-03-04 07:39] LABS: Glucose,Whole Blood 125 mg/dL (75-99)
[2018-03-04] MEDS: INSULIN ASPART 100 UNIT/ML 1 ML 10 ML VIAL SQ SCH ×4 (07:44→22:25)
[2018-03-04] MEDS: FUROSEMIDE 20 MG TAB PO SCH (08:00)
[2018-03-04] MEDS: busPIRone HCl 5 MG TAB PO SCH ×3 (08:00→22:25)
[2018-03-04] MEDS: APIXABAN 5 MG TAB PO SCH ×2 (08:00→22:26)
[2018-03-04] MEDS: IBUPROFEN 800 MG TAB PO SCH ×2 (08:00→22:25)
[2018-03-04] MEDS: POTASSIUM CHLORIDE ER 10 MEQ TAB.ER.PRT PO SCH ×2 (08:00→17:01)
[2018-03-04] MEDS: predniSONE 10 MG TAB PO SCH (08:01)
[2018-03-04] MEDS: LISINOPRIL 20 MG TAB PO SCH (08:01)
[2018-03-04] MEDS: IPRATROPIUM-ALBUTEROL 3 ML NEB INHALATION SCH ×4 (08:15→20:00)
[2018-03-04] MEDS: FORMOTEROL FUMARATE 20 MCG/2 ML NEBU INHALATION SCH ×3 (08:15→20:00)
[2018-03-04] MEDS: BUDESONIDE 1 MG/2 ML NEBU INHALATION SCH ×2 (08:15→20:00)
[2018-03-04 11:48] LABS: Glucose,Whole Blood 137 mg/dL (75-99)
[2018-03-04] MEDS: methylPREDNISolone SOD SUCCI 125 MG/2 ML VIAL IV SCH ×3 (12:04→23:34)
--- NOTE | 2018-03-04 12:25 | P.PN ---
Subjective Progress Note Date: 03/04/18 Principal diagnosis: Acute on chronic hypoxic respiratory failure secondary to an acute exacerbation of chronic obstructive pulmonary disease Progress note dated 03/02/2018 77-year-old no code patient with a history of hypoxemic respiratory failure hypertension DJD PVOD chronic back pain hyperlipidemia and chronic atrial fibrillation. The patient is doing about the same as she did yesterday. She's been on BiPAP pretty much the entire time. She is not a particularly good historian. Very short of breath. Lots of conversational dyspnea. She is a no code patient. The patient was managed primarily with oral medications as IV access is very poor. She was actually refusing IV access. On 03/03/2018 patient seen in follow-up on selective care unit. She is awake, denies any acute distress, did not require BiPAP support last night, and he was removed from the room, with scant 4 L per nasal cannula with pulse ox of 100%. Afebrile, vital signs are stable. Lung sounds are positive for end expiratory wheezes, and fine rales at the bases. She continues on oral Lasix 20 mg daily, nebulized bronchodilators, and oral prednisone 30 mg daily. She is generally weak, remains limited in terms of exercise capacity. She has been refusing any IV access, and all her medications have been switched to oral medications. Patient is seen again today 03/04/2018 in follow-up on the regular medical floor. She is awake and alert. She is in slight respiratory distress. She has been refusing IV placement and IV Solu-Medrol. She's been refusing breathing treatments. She is currently maintaining O2 saturations in the 90s on 4 L/m per nasal cannula. She's been afebrile. This morning we were able to convince her to take her treatments. She is on DuoNeb inhalations 4 times a day and when necessary, Pulmicort and Perforomist inhalations twice a day, and now IV Solu-Medrol. Objective - Vital Signs Vital signs: Vital Signs Temp 98.6 F 03/04/18 06:20 Pulse 96 03/04/18 11:38 Resp 22 03/04/18 07:45 BP 153/86 03/04/18 07:45 Pulse Ox 94 L 03/04/18 06:20 Intake & Output 03/03/18 03/04/18 03/04/18 18:59 06:59 18:59 Intake Total 992 Output Total 100 Balance 892 Intake: Oral 992 Output: Urine 100 Other: Voiding Method Bedside Commode Bedside Commode Bedside Commode Bedpan Bedpan Bedpan # Voids 2 - Exam Patient is awake, alert, in light respiratory distress, currently on 4 L per nasal cannula. HEENT examination is grossly unremarkable. Mucous membranes are moist. Neck supple. Full range of motion. No adenopathy thyromegaly or neck vein distention. Cardiovascular examination reveals mildly irregular rhythm and rate. Heart rate about 100. S1-S2 normal. No S3-S4. No clear murmur is noted. Heart sounds were distant. Lungs reveal expiratory wheezes, and fine bibasilar crackles. Breath sounds are diminished. Abdomen soft and bowel sounds are heard. Extremities are intact. No cyanosis clubbing or edema. Skin without rash. Neurologic examination is very difficult to perform. - Labs CBC & Chem 7: 03/02/18 10:41 03/02/18 10:41 Labs: Abnormal Lab Results - Last 24 Hours (Table) 03/03/18 03/03/18 03/04/18 Range/Units 16:24 20:43 07:33 POC Glucose (mg/dL) 210 H 309 H 125 H (75-99) mg/dL 03/04/18 Range/Units 11:45 POC Glucose (mg/dL) 137 H (75-99) mg/dL Assessment and Plan Assessment: Assessment: Acute on chronic hypoxemic respiratory failure secondary to an acute exacerbation of severe oxygen dependent, steroid dependent chronic obstructive pulmonary disease. History of hypertension History of DJD History of peripheral vascular occlusive disease Chronic back pain History of hyperlipidemia History of atrial fibrillation The patient is a DO NOT RESUSCITATE. Plan: The patient was seen and evaluated by Dr. Hays. We were able to convince the patient to allow and IV access so we could initiate IV Solu-Medrol. She is also doing her bronchodilators as scheduled now. BiPAP if needed. She is a DO NOT RESUSCITATE/DO NOT INTUBATE CODE STATUS. The patient had been refusing IV access and stating she did not want anything further done. No family at the bedside currently. She has brothers here in [place] and a daughter who lives in [place]. We'll attempt to contact them for further discussion. She may benefit from a hospice referral. We will continue to follow. I, the cosigning physician, performed a history & physical examination of the patient. Lungs sounds with bilateral end expiratory wheezing. Few scattered rhonchi. Diminished. Maintaining good O2 saturations in the 90s on 4 L/m per nasal cannula. I discussed the assessment and plan of care with my nurse practitioner, Lela Lopez. I attest to the above note as dictated by her.
[2018-03-04] MEDS: HYDROcodone/APAP 10-325MG 1 EACH TAB PO PRN ×2 (13:53→20:00)
[2018-03-04 17:07] LABS: Glucose,Whole Blood 189 mg/dL (75-99)
--- NOTE | 2018-03-04 18:05 | PN ---
PROGRESS NOTE CHIEF COMPLAINT: Respiratory failure. HISTORY OF PRESENT ILLNESS: This lady is holding her own. Color is good. She is still struggling, but she seems to be slightly better each day. PHYSICAL EXAMINATION: Breath sounds are extremely poor and she has copious rhonchi and a loose cough. There are scattered rales. Cardiac exam demonstrates tachycardia. The abdomen is soft and nontender. EXTREMITIES: Normal. IMPRESSION: 1. Acute respiratory failure. 2. Exacerbation of chronic obstructive pulmonary disease. PLAN: Continue with current program. MMODL / IJN: [id number] /
[2018-03-04 21:09] LABS: Glucose,Whole Blood 203 mg/dL (75-99)
[2018-03-05] MEDS: HYDROcodone/APAP 10-325MG 1 EACH TAB PO PRN ×2 (02:40→18:29)
[2018-03-05] MEDS: LORazepam 1 MG TAB PO PRN ×3 (05:38→18:29)
[2018-03-05] MEDS: methylPREDNISolone SOD SUCCI 125 MG/2 ML VIAL IV SCH ×4 (05:39→23:29)
[2018-03-05] MEDS: IPRATROPIUM-ALBUTEROL 3 ML NEB INHALATION SCH ×4 (07:29→19:42)
[2018-03-05] MEDS: BUDESONIDE 1 MG/2 ML NEBU INHALATION SCH ×2 (07:29→19:42)
[2018-03-05] MEDS: FORMOTEROL FUMARATE 20 MCG/2 ML NEBU INHALATION SCH ×3 (07:29→19:59)
[2018-03-05 07:36] LABS: Glucose,Whole Blood 160 mg/dL (75-99)
[2018-03-05] MEDS: POTASSIUM CHLORIDE ER 10 MEQ TAB.ER.PRT PO SCH ×2 (08:01→15:46)
[2018-03-05] MEDS: INSULIN ASPART 100 UNIT/ML 1 ML 10 ML VIAL SQ SCH ×4 (08:01→21:28)
[2018-03-05] MEDS: busPIRone HCl 5 MG TAB PO SCH ×3 (08:01→20:42)
[2018-03-05] MEDS: APIXABAN 5 MG TAB PO SCH ×2 (08:01→20:42)
[2018-03-05] MEDS: LISINOPRIL 20 MG TAB PO SCH (08:01)
[2018-03-05] MEDS: FUROSEMIDE 20 MG TAB PO SCH (08:01)
[2018-03-05] MEDS: IBUPROFEN 800 MG TAB PO SCH ×2 (08:06→20:42)
--- NOTE | 2018-03-05 10:53 | P.PN ---
Subjective Progress Note Date: 03/05/18 Principal diagnosis: Acute on chronic hypoxic respiratory failure secondary to an acute exacerbation of chronic obstructive pulmonary disease Progress note dated 03/02/2018 77-year-old no code patient with a history of hypoxemic respiratory failure hypertension DJD PVOD chronic back pain hyperlipidemia and chronic atrial fibrillation. The patient is doing about the same as she did yesterday. She's been on BiPAP pretty much the entire time. She is not a particularly good historian. Very short of breath. Lots of conversational dyspnea. She is a no code patient. The patient was managed primarily with oral medications as IV access is very poor. She was actually refusing IV access. On 03/03/2018 patient seen in follow-up on selective care unit. She is awake, denies any acute distress, did not require BiPAP support last night, and he was removed from the room, with scant 4 L per nasal cannula with pulse ox of 100%. Afebrile, vital signs are stable. Lung sounds are positive for end expiratory wheezes, and fine rales at the bases. She continues on oral Lasix 20 mg daily, nebulized bronchodilators, and oral prednisone 30 mg daily. She is generally weak, remains limited in terms of exercise capacity. She has been refusing any IV access, and all her medications have been switched to oral medications. Patient is seen again today 03/04/2018 in follow-up on the regular medical floor. She is awake and alert. She is in slight respiratory distress. She has been refusing IV placement and IV Solu-Medrol. She's been refusing breathing treatments. She is currently maintaining O2 saturations in the 90s on 4 L/m per nasal cannula. She's been afebrile. This morning we were able to convince her to take her treatments. She is on DuoNeb inhalations 4 times a day and when necessary, Pulmicort and Perforomist inhalations twice a day, and now IV Solu-Medrol. The patient is seen again today 03/05/2018 in follow-up on the regular medical floor. She is currently resting fairly comfortably in bed. She is a little more awake and alert today as compared to yesterday. She did allow for IV placement and is currently on IV Solu-Medrol. She is less bronchospastic and wheezy. She continues with few scattered rhonchi. He is maintaining good O2 saturations in the high 90s on 4 L/m per nasal cannula. She's afebrile. Objective - Vital Signs Vital signs: Vital Signs Temp 97.2 F L 03/05/18 07:00 Pulse 100 03/05/18 07:44 Resp 20 03/05/18 07:00 BP 192/94 03/05/18 07:00 Pulse Ox 99 03/05/18 07:00 Intake & Output 03/04/18 03/05/18 03/05/18 18:59 06:59 18:59 Intake Total 1200 Balance 1200 Intake: Oral 1200 Other: Voiding Method Bedside Commode Bedpan # Voids 2 1 - Exam Patient is awake, alert, in light respiratory distress, currently on 4 L per nasal cannula. HEENT examination is grossly unremarkable. Mucous membranes are moist. Neck supple. Full range of motion. No adenopathy thyromegaly or neck vein distention. Cardiovascular examination reveals mildly irregular rhythm and rate. Heart rate about 100. S1-S2 normal. No S3-S4. No clear murmur is noted. Heart sounds were distant. Lungs reveal expiratory wheezes, and fine bibasilar crackles. Breath sounds are diminished. Abdomen soft and bowel sounds are heard. Extremities are intact. No cyanosis clubbing or edema. Skin without rash. Neurologic examination is very difficult to perform. - Labs CBC & Chem 7: 03/02/18 10:41 03/02/18 10:41 Labs: Abnormal Lab Results - Last 24 Hours (Table) 03/04/18 03/04/18 03/04/18 Range/Units 11:45 16:55 21:04 POC Glucose (mg/dL) 137 H 189 H 203 H (75-99) mg/dL 03/05/18 Range/Units 07:34 POC Glucose (mg/dL) 160 H (75-99) mg/dL Assessment and Plan Assessment: Assessment: Acute on chronic hypoxemic respiratory failure secondary to an acute exacerbation of severe oxygen dependent, steroid dependent chronic obstructive pulmonary disease. History of hypertension History of DJD History of peripheral vascular occlusive disease Chronic back pain History of hyperlipidemia History of atrial fibrillation The patient is a DO NOT RESUSCITATE. Plan: The patient was seen and evaluated by Dr. Hays. She is slightly improved today as compared to yesterday. She is maintained on IV Solu-Medrol, bronchodilators, Pulmicort and Perforomist. She is a DO NOT RESUSCITATE/DO NOT INTUBATE CODE STATUS. She may benefit from a hospice referral. The current plan is for discharge to an extended care facility. We will continue to follow. I, the cosigning physician, performed a history & physical examination of the patient. Lungs sounds with bilateral end expiratory wheezing. Few scattered rhonchi. Diminished. Maintaining good O2 saturations in the 90s on 4 L/m per nasal cannula. I discussed the assessment and plan of care with my nurse practitioner, Lela Lopez. I attest to the above note as dictated by her.
[2018-03-05 12:23] LABS: Glucose,Whole Blood 132 mg/dL (75-99)
[2018-03-05 14:43] VITALS: BMI 18.1
--- NOTE | 2018-03-05 16:12 | PN ---
PROGRESS NOTE DATE OF SERVICE: 03/05/2018 CHIEF COMPLAINT: Respiratory failure. HISTORY OF PRESENT ILLNESS: This lady is doing worse. She has lost her IV. She is struggling to breathe and it is very difficult to communicate with her. PHYSICAL EXAMINATION: She is slightly cyanotic. Breath sounds are extremely poor and there are scattered rales. Cardiac exam demonstrates tachycardia. The abdomen is soft. She is struggling to breathe and her respiratory rate is over 40. IMPRESSION: Acute respiratory failure and end-stage chronic obstructive pulmonary disease. PLAN: Once again, I tried discussing with her her desire to continue with treatment or consider palliative care or hospice. As nearly as I can tell, she indicated that she is still undecided. The family feels that she should be placed in hospice. Two of the children have POA, but it is not clear what they cover. Hospital is working to gather up the documents from the children to clarify the issue. The nurse who has been working with the patient all day indicates that the patient now is requesting hospice, and this will be ordered. LALO / ANNA: [id number] /
[2018-03-05 16:56] LABS: Glucose,Whole Blood 150 mg/dL (75-99)
[2018-03-05 21:06] LABS: Glucose,Whole Blood 138 mg/dL (75-99)
[2018-03-05 23:36] VITALS: RESP 16
[2018-03-06] MEDS: LORazepam 1 MG TAB PO PRN ×2 (00:52→08:20)
[2018-03-06] MEDS: methylPREDNISolone SOD SUCCI 125 MG/2 ML VIAL IV SCH ×2 (05:13→11:17)
[2018-03-06 05:47] VITALS: BP 173/86; TEMP 97.2
[2018-03-06] MEDS ORDERED: SCOPOLAMINE 1.5MG/72HR PATCH TRANSDERM SCH (07:15)
[2018-03-06 07:20] LABS: Glucose,Whole Blood 110 mg/dL (75-99)
[2018-03-06] MEDS: BUDESONIDE 1 MG/2 ML NEBU INHALATION SCH (07:50)
[2018-03-06] MEDS: FORMOTEROL FUMARATE 20 MCG/2 ML NEBU INHALATION SCH (07:50)
[2018-03-06] MEDS: IPRATROPIUM-ALBUTEROL 3 ML NEB INHALATION SCH ×2 (07:50→12:19)
[2018-03-06] MEDS: LISINOPRIL 20 MG TAB PO SCH (08:20)
[2018-03-06] MEDS: IBUPROFEN 800 MG TAB PO SCH (08:20)
[2018-03-06] MEDS: FUROSEMIDE 20 MG TAB PO SCH (08:20)
[2018-03-06] MEDS: busPIRone HCl 5 MG TAB PO SCH (08:20)
[2018-03-06] MEDS: APIXABAN 5 MG TAB PO SCH (08:20)
[2018-03-06] MEDS: INSULIN ASPART 100 UNIT/ML 1 ML 10 ML VIAL SQ SCH ×2 (08:21→11:17)
[2018-03-06] MEDS: POTASSIUM CHLORIDE ER 10 MEQ TAB.ER.PRT PO SCH (08:21)
--- NOTE | 2018-03-06 11:35 | P.PN ---
Subjective Progress Note Date: 03/06/18 77-year-old no code patient with a history of hypoxemic respiratory failure hypertension DJD PVOD chronic back pain hyperlipidemia and chronic atrial fibrillation. The patient is doing about the same as she did yesterday. She's been on BiPAP pretty much the entire time. She is not a particularly good historian. Very short of breath. Lots of conversational dyspnea. She is a no code patient. The patient was managed primarily with oral medications as IV access is very poor. She was actually refusing IV access. On 03/03/2018 patient seen in follow[facility]up on [facility]. She is awake, denies any acute distress, did not require BiPAP support last night, and he was removed from the room, with scant 4 L per nasal cannula with pulse ox of 100%. Afebrile, vital signs are stable. Lung sounds are positive for end expiratory wheezes, and fine rales at the bases. She continues on oral Lasix 20 mg daily, nebulized bronchodilators, and oral prednisone 30 mg daily. She is generally weak, remains limited in terms of exercise capacity. She has been refusing any IV access, and all her medications have been switched to oral medications. Patient is seen again today 03/04/2018 in follow-up on the regular medical floor. She is awake and alert. She is in slight respiratory distress. She has been refusing IV placement and IV Solu-Medrol. She's been refusing breathing treatments. She is currently maintaining O2 saturations in the 90s on 4 L/m per nasal cannula. She's been afebrile. This morning we were able to convince her to take her treatments. She is on DuoNeb inhalations 4 times a day and when necessary, Pulmicort and Perforomist inhalations twice a day, and now IV Solu-Medrol. The patient is seen again today 03/05/2018 in follow-up on the regular medical floor. She is currently resting fairly comfortably in bed. She is a little more awake and alert today as compared to yesterday. She did allow for IV placement and is currently on IV Solu-Medrol. She is less bronchospastic and wheezy. She continues with few scattered rhonchi. He is maintaining good O2 saturations in the high 90s on 4 L/m per nasal cannula. She's afebrile. On today's evaluation of 03/06/2018, the patient is doing very poorly. I was able to establish an IV line on this patient and patient was started back on IV Solu-Medrol. Nevertheless she continued to have issues with breathing, shortness of breath with extreme limitation in exercise capacity and shortness of breath even at rest. The patient continues to have labored breathing. She is refusing IV lines. In fact, the IV line that was establish chest there was again loss. She is refusing to wear oxygen. Her family was contacted and after discussing this over with the primary care and the family the patient seems to be headed towards hospice care. I think it's reasonable. She has advanced COPD along with chronic hypoxic respiratory failure. Previous CAT scan of the chest shows a 6 mm right middle lobe pulmonary nodule addition to a lingular pneumatocele and this was noted on a CAT scan of the chest from July 2017. Her performance and functional status has been extremely poor. The patient has vertebral compression deformities on her spine and chronic back pain. She has limited mobility. She has [id number] smoking history. Objective - Vital Signs Vital signs: Vital Signs Temp 97.2 F L 03/06/18 05:46 Pulse 112 H 03/06/18 08:11 Resp 16 03/06/18 07:50 BP 173/86 03/06/18 05:46 Pulse Ox 98 03/06/18 05:46 Intake & Output 03/05/18 03/06/18 03/06/18 18:59 06:59 18:59 Weight 42 kg Other: Voiding Method Incontinent Incontinent # Voids 2 1 - Exam Patient is extremely lethargic and weak and she cannot speak in full sentences. She is on room air as the patient has refused to wear her oxygen. She is using some excessive muscle breathing. Head exam was generally normal. There was no scleral icterus or corneal arcus. Mucous membranes were moist. Neck was supple and without jugular venous distension, thyromegaly, or carotid bruits. Carotids were easily palpable bilaterally. There was no adenopathy. Lungs sounds are diminished and there is diffuse expiratory wheezes throughout the lung his bilaterally. Very much side and in the lung bases bilaterally. Cardiac exam revealed the PMI to be normally situated and sized. The rhythm was regular and no extrasystoles were noted during several minutes of auscultation. The first and second heart sounds were normal and physiologic splitting of the second heart sound was noted. There were no murmurs, rubs, clicks, or gallops. Abdominal exam revealed normal bowel sounds. The abdomen was soft, non-tender, and without masses, organomegaly, or appreciable enlargement of the abdominal aorta. Examination of the extremities revealed easily palpable radial, femoral and pedal pulses. There was no cyanosis, clubbing or edema. Neurologically she is moving all 4 extremities. She is slow in answering questions. Cranial nerves are intact. - Labs CBC & Chem 7: 03/02/18 10:41 03/02/18 10:41 Labs: Abnormal Lab Results - Last 24 Hours (Table) 03/05/18 03/05/18 03/05/18 Range/Units 12:21 16:51 20:50 POC Glucose (mg/dL) 132 H 150 H 138 H (75-99) mg/dL 03/06/18 Range/Units 07:11 POC Glucose (mg/dL) 110 H (75-99) mg/dL Assessment and Plan Plan: Assessment 1 advanced COPD, failure to respond to outpatient therapy and the patient is headed hours hospice 2 acute on top of chronic hypoxic respiratory failure secondary to above 3. Vertebral compression fractures 4 hypertension 5 peripheral vascular disease 6 chronic back pain 7 hyperlipidemia 8 chronic atrial fibrillation 9 DO NOT RESUSCITATE CODE STATUS Plan Family has been informed. Daughter has been contacted in [place]. The plan is to proceed with hospice care on this patient. The patient does not desire to continue with the treatment and she refuses to wear oxygen and she is also pulled up her IV lines on multiple occasions. She thinks her quality of life is extremely poor. She is assisted hospice care which I think it's appropriate. We'll proceed with hospice care. We'll sign off the case.
[2018-03-06 12:02] LABS: Glucose,Whole Blood 106 mg/dL (75-99)
[2018-03-06 12:29] VITALS: PULSE 100
--- NOTE | 2018-03-06 14:16 | PN ---
PROGRESS NOTE DATE OF SERVICE: 03/06/2018. CHIEF COMPLAINT: Acute respiratory failure. HISTORY OF PRESENT ILLNESS: This lady is a bit more lethargic. She is arousable. She has been referred to hospice. PHYSICAL EXAM: Hands are cyanotic. Chest demonstrates very poor breath sounds and when she is aroused she has a thick phlegm that she has been trying to cough up. Cardiac exam is normal. IMPRESSION: 1. Acute respiratory failure. 2. End-stage chronic obstructive pulmonary disease. PLAN: Hospice referral for comfort measures only. MMODL / DEANN: [id number] /
== END 2018-03-06 13:03 | disposition hospice, inpatient (51) | DRG 189 ==
LOC: EC 16:30 → 6SEL 18:01 → 4MS4W 03-03 20:55
PROVIDERS: ADMIT Family Medicine; ATTEND Family Medicine
DX: J96.21 Acute and chronic respiratory failure with hypoxia (principal); M48.50XA Collapsed vertebra, not elsewhere classified, site unspecified, initial encounter for fracture; J43.9 Emphysema, unspecified; E78.5 Hyperlipidemia, unspecified; E87.6 Hypokalemia; F17.200 Nicotine dependence, unspecified, uncomplicated; F41.9 Anxiety disorder, unspecified; G89.29 Other chronic pain; I11.0 Hypertensive heart disease with heart failure; I48.2 Chronic atrial fibrillation; I50.9 Heart failure, unspecified; I73.9 Peripheral vascular disease, unspecified; Z51.5 Encounter for palliative care; Z66 Do not resuscitate; Z79.01 Long term (current) use of anticoagulants; Z79.51 Long term (current) use of inhaled steroids; Z79.52 Long term (current) use of systemic steroids; Z79.899 Other long term (current) drug therapy; Z82.49 Family history of ischemic heart disease and other diseases of the circulatory system; Z82.5 Family history of asthma and other chronic lower respiratory diseases; Z90.710 Acquired absence of both cervix and uterus; Z99.81 Dependence on supplemental oxygen; Z79.1 Long term (current) use of non-steroidal anti-inflammatories (NSAID); Z91.018 Allergy to other foods; M54.9 Dorsalgia, unspecified
CPT/HCPCS: 36415; 71045; 80048; 80053; 82550; 82553; 83036; 83880; 84132; 84484; 85025; 85379; 85610; 85730; 93005; 94640; 94644; 94660; 94760; 96361; 96374; 96375; 99285

== ENCOUNTER 2018-03-06 12:03 | Inpatient (IN) | payer MEDICAID ==
[2018-03-06] MEDS ORDERED: ONDANSETRON 4 MG/2 ML VIAL IVP PRN (12:24)
[2018-03-06] MEDS ORDERED: ACETAMINOPHEN SUPPOSITORY 650 MG SUPP RECTAL PRN (12:24)
[2018-03-06] MEDS ORDERED: SCOPOLAMINE 1.5MG/72HR PATCH TRANSDERM PRN (13:12)
[2018-03-06] MEDS: MORPHINE SULFATE (100 MG/2 ML) 100 MG in SODIUM CHLORIDE 0.9% 100 ML IV SCH (13:35)
[2018-03-06] MEDS: LORazepam 2 MG/ML INJ IV PRN ×2 (13:36→14:49)
[2018-03-07] MEDS: MORPHINE SULFATE (100 MG/2 ML) 100 MG in SODIUM CHLORIDE 0.9% 100 ML IV SCH (04:30)
[2018-03-07 06:13] VITALS: RESP 10
--- NOTE | 2018-03-07 13:31 | P.DS ---
Providers Date of admission: 03/06/18 13:07 Attending physician: Thom Guzman Primary care physician: Thom Guzman Hospital Course: This is on-call hospitalist covering for Dr. Guzman starting 03/07/2018 This is a pleasant 77 years old female with past medical history of atrial fibrillation, CHF, COPD, hyperlipidemia, hypertension, osteoarthritis, renal and vascular disease, chronic back pain, PVD on both legs, possible peripheral neuropathy. Patient was recently admitted for COPD exacerbation from 02/28 until 03/06. She has been evaluated by certified ethical hacker and primary physicians at that time. Patient was found to have advanced/end stage COPD. She is no code. She was accepted for hospice care already. When he came to see the patient and family was at bedside including 2 brothers who are next of kin as per family. Patient was lying in bed with no signs of a breathing. Patient was unresponsive. Pupils are fully dilated no pulse or a breathing is noted on examination. Cardiac rhythm strip shows straight-line Patient looks . Family at bedside Informed. Emotional support is a provided to the family. Patient is a pronounced at 12:35 PM Please refer today's examination from the H&P Plan - Discharge Summary New Discharge Prescriptions: No Action Ibuprofen [Motrin] 800 mg PO BID Ergocalciferol [Vitamin D2 (DRISDOL)] 50,000 unit PO WE Hydrocodone/Acetaminophen [[place] 5-325] 1 tab PO Q6HR PRN PRN Reason: Pain Budesonide-Formot 160-4.5 Mcg [Symbicort 160-4.5 Mcg Inhaler] 2 puff INHALATION RT-BID Apixaban [Eliquis] 5 mg PO BID@0800,2100 Atorvastatin [Lipitor] 20 mg PO HS@2100 Benazepril HCl [Lotensin] 40 mg PO DAILY Biotene Mouthwash 1 dose PO BID Bisacodyl [Dulcolax] 10 mg RECTAL DAILY PRN PRN Reason: Constipation Bisacodyl [Dulcolax] 5 mg PO DAILY PRN PRN Reason: Constipation busPIRone HCl [Buspar] 5 mg PO TID PRN PRN Reason: Anxiety Furosemide [Lasix] 20 mg PO DAILY@0800 Ipratropium-Albuterol Nebulize [Duoneb 0.5 mg-3 mg/3 ml Soln] 3 ml INHALATION RT-Q4H PRN PRN Reason: Shortness Of Breath Ipratropium-Albuterol Nebulize [Duoneb 0.5 mg-3 mg/3 ml Soln] 3 ml INHALATION RT-Q6H PRN PRN Reason: Shortness Of Breath Or Wheezing Lactose-Reduced Food [Ensure Plus] 120 ml PO BID Magnesium Hydroxide [Milk of Magnesia] 2,400 mg PO DAILY PRN PRN Reason: Constipation Metoprolol Tartrate [Lopressor] 50 mg PO BID@0800,2100 Na Phos,M-B/Na Phos,Di-Ba [Fleet Adult] 133 ml RECTAL DAILY PRN PRN Reason: Constipation Potassium Chloride ER [K-Dur 10] 10 meq PO BID@0800,1700 predniSONE 20 mg PO DAILY@0800 Tiotropium 18 Mcg/Puff [Spiriva] 1 cap INHALATION RT-DAILY@0800 Discharge Medication List Ibuprofen [Motrin] 800 mg PO BID 04/16/16 [History] Ergocalciferol [Vitamin D2 (DRISDOL)] 50,000 unit PO WE 08/11/17 [History] Budesonide-Formot 160-4.5 Mcg [Symbicort 160-4.5 Mcg Inhaler] 2 puff INHALATION RT-BID 08/16/17 [History] Hydrocodone/Acetaminophen [[place] 5-325] 1 tab PO Q6HR PRN 08/16/17 [History] Apixaban [Eliquis] 5 mg PO BID@0800,2100 02/28/18 [History] Atorvastatin [Lipitor] 20 mg PO HS@209902/28/18 [History] Benazepril HCl [Lotensin] 40 mg PO DAILY 02/28/18 [History] Biotene Mouthwash 1 dose PO BID 02/28/18 [History] Bisacodyl [Dulcolax] 5 mg PO DAILY PRN 02/28/18 [History] Bisacodyl [Dulcolax] 10 mg RECTAL DAILY PRN 02/28/18 [History] Furosemide [Lasix] 20 mg PO DAILY@0800 02/28/18 [History] Ipratropium-Albuterol Nebulize [Duoneb 0.5 mg-3 mg/3 ml Soln] 3 ml INHALATION RT -Q4H PRN 02/28/18 [History] Ipratropium-Albuterol Nebulize [Duoneb 0.5 mg-3 mg/3 ml Soln] 3 ml INHALATION RT -Q6H PRN 02/28/18 [History] Lactose-Reduced Food [Ensure Plus] 120 ml PO BID 02/28/18 [History] Magnesium Hydroxide [Milk of Magnesia] 2,400 mg PO DAILY PRN 02/28/18 [History] Metoprolol Tartrate [Lopressor] 50 mg PO BID@0800,2100 02/28/18 [History] Na Phos,M-B/Na Phos,Di-Ba [Fleet Adult] 133 ml RECTAL DAILY PRN 02/28/18 [ History] Potassium Chloride ER [K-Dur 10] 10 meq PO BID@0800,1700 02/28/18 [History] Tiotropium 18 Mcg/Puff [Spiriva] 1 cap INHALATION RT-DAILY@0800 02/28/18 [ History] busPIRone HCl [Buspar] 5 mg PO TID PRN 02/28/18 [History] predniSONE 20 mg PO DAILY@0800 02/28/18 [History]
--- NOTE | 2018-03-07 21:04 | P.HPIM ---
History of Present Illness This is on-call hospitalist covering for Dr. alvarez starting 03/07/2018 This is a pleasant 77 years old female with past medical history of atrial fibrillation, CHF, COPD, hyperlipidemia, hypertension, osteoarthritis, renal and vascular disease, chronic back pain, PVD on both legs, possible peripheral neuropathy. Patient was recently admitted for COPD exacerbation from 02/28 until 03/06. She has been evaluated by golf ball inspector and primary physicians at that time. Patient was found to have advanced/end stage COPD. She is no code. She was accepted for hospice care already. When he came to see the patient and family was at bedside including 2 brothers who are next of kin as per family. Patient was lying in bed with no signs of a breathing. Patient was unresponsive. Pupils are fully dilated no pulse or a breathing is noted on examination. corneal reflux is absent. Patient looks . Family at bedside Informed. Emotional support is a provided to the family. Review of Systems Unable to perform. Past Medical History Past Medical History: Atrial Fibrillation, Heart Failure, COPD, Hyperlipidemia, Hypertension, Osteoarthritis (OA), Renal Disease, Vascular Disorder Additional Past Medical History / Comment(s): emphysema, DDD, back pain, arthritis back and hands, PVD bilateral legs, numbness/tingling bilateral feet with R foot worse History of Any Multi-Drug Resistant Organisms: None Reported Past Surgical History: Hernia Repair, Hysterectomy Additional Past Surgical History / Comment(s): R inguinal hernia repair, colonoscopy with benign polypectomy. Past Anesthesia/Blood Transfusion Reactions: Postoperative Nausea & Vomiting ( PONV) Past Psychological History: Anxiety Additional Psychological History / Comment(s): lives at [facility] Smoking Status: Current every day smoker Past Drug Use History: None Reported - Past Family History Father Family Medical History: COPD Additional Family Medical History / Comment(s): empysema Mother Family Medical History: AICD/Pacemaker, Myocardial Infarction ([place]) Additional Family Medical History / Comment(s): Mother had a pacemaker. Medications and Allergies Home Medications Medication Instructions Recorded Confirmed Type Ergocalciferol [Vitamin D2 50,000 unit PO WE 08/11/17 03/06/18 History (DRISDOL)] Allergies Allergy/AdvReac Type Severity Reaction Status Date / Time ramirez Allergy Unknown Verified 02/28/18 16:43 ramirez flavor Allergy Unknown Verified 02/28/18 16:43 Physical Exam Vitals: Vital Signs Resp 03/07/18 06:12 10 L 03/07/18 06:00 10 L 03/06/18 23:00 12 Intake and Output 03/06/18 03/07/18 03/07/18 22:59 06:59 14:59 Intake Total 5.1 75.99 Balance 5.1 75.99 Intake: Intake, IV Titration 5.1 75.99 Amount Morphine Sulfate (100 mg/ 5.1 75.99 2 ml) 100 mg In Sodium Chloride 0.9% 100 ml @ 1 MG/HR 1.02 mls/hr IV . Q24H [facility] Rx#:[id number] Oral 0 0 Other: # Voids 0 0 GENERAL: The patient unresponsive, no signs of breathing HEENT: Pupils are fully dilated but reactive to light, coronary reflexes negative CARDIOVASCULAR: No heart sounds heard. Carotid pulses absent PULMONARY: No breath sounds ABDOMEN: Soft, MUSCULOSKELETAL: No joint swelling or deformity. NEUROLOGICAL: Patient is unresponsive Assessment and Plan Assessment: -Ended stage COPD -No code -Chronic atrial fibrillation -Heart failure -Hyperlipidemia -Hypertension -Ulcer arthritis and -Renal disease needing -Vascular disease, she has PVD of both lower extremity -Chronic back pain -Arthritis of the back and hence -Numbness and tingling of the right foods -Smoker about half pack per day of cigarettes, until recently. As per documentation Plan: -Admit to hospice care -Patient is no code -By the time I saw the patient she has already
--- NOTE | 2018-03-10 21:11 | DS ---
DISCHARGE SUMMARY CHIEF COMPLAINT: Difficulty breathing. HISTORY OF PRESENT ILLNESS AND PHYSICAL EXAM: Details of this lady's history and physical can be found in the initial workup. LABORATORY STUDIES: While she was in a hospital, she had laboratory studies, details of which can be found in the laboratory section of the chart. COURSE IN HOSPITAL: After admission she was placed on bedrest, started on intravenous fluids with updrafts, IV inhaled steroids, BiPAP, etc., but she continued to have extreme difficulty breathing and could not significantly improve. As she deteriorated, end of life issues were discussed, but she did not want to stop treatment. Eventually, however, as she grew much worse both she and her family decided that the best course was to go with hospice and this was arranged. She on the . FINAL DIAGNOSIS: 1. Acute respiratory failure. 2. Exacerbation of chronic obstructive pulmonary disease. OPERATIONS: None. CONSULTATIONS: Hospice. She was not improved. She . MMFARHEENL / DEANN: [id number] /
== END 2018-03-07 12:38 | disposition expired | DRG 951 ==
LOC: 4MS4W 13:07
PROVIDERS: ADMIT Family Medicine; ATTEND Family Medicine
DX: Z51.5 Encounter for palliative care (principal); J96.00 Acute respiratory failure, unspecified whether with hypoxia or hypercapnia; J44.1 Chronic obstructive pulmonary disease with (acute) exacerbation; G89.29 Other chronic pain; I48.2 Chronic atrial fibrillation; I73.9 Peripheral vascular disease, unspecified; Z66 Do not resuscitate; I50.9 Heart failure, unspecified; I11.0 Hypertensive heart disease with heart failure; N28.9 Disorder of kidney and ureter, unspecified; M19.042 Primary osteoarthritis, left hand; M19.041 Primary osteoarthritis, right hand; M47.9 Spondylosis, unspecified; G62.9 Polyneuropathy, unspecified; F41.9 Anxiety disorder, unspecified; F17.210 Nicotine dependence, cigarettes, uncomplicated; E78.5 Hyperlipidemia, unspecified; Z82.5 Family history of asthma and other chronic lower respiratory diseases; Z90.710 Acquired absence of both cervix and uterus; Z91.02 Food additives allergy status; Z82.49 Family history of ischemic heart disease and other diseases of the circulatory system; Z91.018 Allergy to other foods; Z79.899 Other long term (current) drug therapy; Z86.010 Personal history of colon polyps